=== PATIENT | female | born 1965 | race Caucasian/White ===

== ENCOUNTER 2021-10-25 08:13 | Outpatient (REF) | payer OTHER, SELFPAY ==
[2021-10-25 11:28] LABS: MANUAL DIFF FLAG NO
[2021-10-25 11:35] LABS: Basophils Absolute Auto 0.1 X10*3/uL (0.0-0.2); Basophils Percent Auto 0.9 % (0-2); Eosinophils Absolute Auto 0.7 X10*3/uL (0.0-0.4); Eosinophils Percent Auto 11.3 % (0-4); Hemoglobin 15.4 g/dl (12.0-16.0); Imm Gran Abs Auto 0.01 X10*3/uL (0.00-0.03); Imm Gran Pct Auto 0.2 % (0.0-0.4); Lymphocytes Absolute Auto 2.2 X10*3/uL (1.2-4.9); Lymphocytes Percent Auto 38.5 % (20-40); Mean Corpuscular HGB Conc 32.8 g/dl (31.0-35.0); Mean Corpuscular Hemoglobin 30.7 pg (27.0-33.0); Mean Corpuscular Volume 93.6 fL (80.0-98.0); Monocytes Absolute Auto 0.4 X10*3/uL (0.1-1.2); Monocytes Percent Auto 6.7 % (2-11); Neutrophils Absolute Auto 2.5 x10*3/uL (2.0-8.3); Neutrophils Percent Auto 42.4 % (45-73); Platelet Count 341 X10*3/uL (160-400); Red Blood Count 5.02 X10*6/uL (4.20-5.50); Red Cell Distribution Width 13.5 % (11.0-16.0); White Blood Count 5.8 X10*3/uL (4.8-10.8)
[2021-10-25 11:48] LABS: Alanine Aminotransferase 29 U/L (0-31); Albumin Level 4.4 g/dL (3.5-5.0); Alkaline Phosphatase 109 U/L (39-117); Anion Gap 13 (12-20); Aspartate Amino Transferase 25 U/L (5-31); Bilirubin Total 0.5 mg/dL (0.0-1.0); Blood Urea Nitrogen 17 mg/dL (9-16); Calcium 9.2 mg/dL (8.4-10.2); Carbon Dioxide 29 mmol/L (22-29); Chloride 103 mmol/L (96-108); Cholesterol 280 mg/dL; Estimated Glomerular Filt Rate > 60; Glucose Fasting 89 mg/dL (60-99); HDL Cholesterol 63 mg/dL; LDL Cholesterol Calculated 196 mg/dl; Potassium 4.1 mmol/L (3.3-5.1); Sodium 141 mmol/L (135-145); Total Protein 7.2 g/dL (6.5-8.0); Triglycerides 105 mg/dL
[2021-10-25 12:10] LABS: Vitamin D 25-OH Total 51.4 ng/mL (>30)
[2021-10-25 12:22] LABS: Erythrocyte Sedimentation Rate 5 MM/HR (0-20)
[2021-10-30 21:06] LABS: CRP High Sensitivity 2.3 mg/L
== END 2021-10-25 08:14 | disposition home or self-care (01) ==
LOC: HO.HMGCLDS 08:13
PROVIDERS: PCP Internal Medicine; Visit Provider Internal Medicine
DX: R10.13 Epigastric pain (principal); E78.5 Hyperlipidemia, unspecified; M94.0 Chondrocostal junction syndrome [Tietze]; Z78.0 Asymptomatic menopausal state
CPT/HCPCS: 36415; 80053; 80061; 82306; 85025; 85652; 86141

== ENCOUNTER 2022-06-06 09:07 | Outpatient (REF) | payer OTHER, SELFPAY ==
[2022-06-06 12:46] LABS: Alanine Aminotransferase 25 U/L (0-31); Aspartate Amino Transferase 26 U/L (5-31); Cholesterol 176 mg/dL; HDL Cholesterol 55 mg/dL; LDL Cholesterol Calculated 108 mg/dl; Triglycerides 68 mg/dL
== END 2022-06-06 09:08 | disposition home or self-care (01) ==
LOC: HO.HMGCLDS 09:07
PROVIDERS: PCP Internal Medicine; Visit Provider Internal Medicine
DX: E78.5 Hyperlipidemia, unspecified (principal)
CPT/HCPCS: 36415; 80061; 84450; 84460

== ENCOUNTER 2022-12-17 12:13 | Outpatient (AMB) | payer OTHER, SELFPAY ==
--- NOTE | 2022-12-17 12:51 | MHC.PC.OV ---
Vital Signs 12/17/22 12:52 Height 5 ft Weight 136 lb BMI 26.6 BP 112/70 Blood Pressure Location Rt brachial Position Sitting Pulse 96 Pulse Source Pulse Oximeter Pulse Oximetry (%) 96 Oxygen Delivery Method Room Air Intake Visit Reasons: PHY Intake Note: Pt is here today for her PE and pap smear Allergies No Known Allergies [No Known Allergies*] Allergy (Verified 03/24/23 16:35) Medication List - Last Reconciled 03/24/23 by Catherine Anne MD albuterol sulfate 90 mcg/actuation 2 puffs inhalation Q6H PRN celecoxib 200 mg PO DAILY PRN rosuvastatin 5 mg PO DAILY Tobacco use date assessed: 12/17/22 Dental Screening Dental Screen Date: 12/17/22 Did you have a dental visit in the last 12 months?: No Was dental information given to patient?: Patient has dentist HPI PHY HPI Details 58-year-old lady here today for physical exam. She has hyperlipidemia, currently on rosuvastatin, and has been compliant with her diet, has been having recurrent episodes o pain in her midback, worse with prolonged standing and walking. Denies any accompanying weakness, no urinary or fecal incontinence. She is up-to-date with her screening colonoscopy done [place] [address] Wen showing only presence of diverticulosis, and is due for her cervical cancer screening. Has had COVID vaccinations the past but does not want to get the booster, due for her flu vaccine. She complains of intermittent episode of shortness of breath on moderate exertion, needs a refill on her albuterol inhaler which she uses as needed. Does not smoke cigarettes but vapes. [facility] Medical History (Updated 12/17/22 @ 13:40 by Catherine Anne MD) Lumbago syndrome Mid back pain Esophagitis with gastritis Exertional shortness of breath Surgical History No pertinent past surgical history Family History (Updated 12/17/22 @ 12:54 by Kady Hadley CMA) Father Mental health disorder Other No pertinent family history in first degree relatives Social History Housing: House Patient Tobacco Use Status: Former Tobacco user e-Cigarette/Vaping Use: Currently Using service: No Current occupational status: employed Cognitive needs: No Hearing needs: No Vision needs: Yes Questionnaire PHQ-9 Over the last 2 weeks, how often have you been bothered by any of the following problems? 1. Little interest or pleasure in doing things: several days 2. Feeling down, depressed, or hopeless: not at all 3. Trouble falling or staying asleep, or sleeping too much: several days 4. Feeling tired or having little energy: several days 5. Poor appetite or overeating: not at all 6. Feeling bad about yourself - or that you are a failure or have let yourself or your family down: not at all 7. Trouble concentrating on things, such as reading the newspaper or watching television: not at all 8. Moving or speaking so slowly that other people could have noticed. Or the opposite - being so fidgety or restless that you have been moving around a lot more than usual: not at all 9. Thoughts that you would be better off or of hurting yourself in some way: not at all Total score: 3 Depression Screening Interpretation: Negative Depression Screening Done: Yes 19903 - PHQ-9 Billing: Yes Source: Developed by Drs. Micah Covington, Julia Pastrana, Nilay Kimbrough and colleagues, with an educational miri from [employer]. Thrive Questionnaire Date Thrive assessed: 12/17/22 I am a: Patient What is your living situation today?: I have a steady place to live Within the past 12 months, did the food you bought not last and you didn't have the money to get more?: Never true Within the past 12 months, did you worry whether your food would run out before you got money to buy more?: Never true Do you have trouble paying for medicines?: No Do you have trouble getting transportation to medical appointments?: No Do you have trouble paying your heating and electricity bill?: No Do you have trouble taking care of your child, family member or friend?: No Do you have trouble with day-to-day activities such as bathing, preparing meals, shopping, managing finances, etc.?: No Are you currently unemployed and looking for a job?: No Are you interested in more education?: No AUDIT C Alcohol Use Questionnaire (AUDIT-C) 1. How often do you have a drink containing alcohol?: Monthly or less 2. How many drinks containing alcohol do you have on a typical day when you are drinking?: 1 or 2 3. How often do you have six or more drinks on one occasion?: Never Total Score: 1 YOGESH-7 AMB Questionnaire YOGESH-7 Date YOGESH - 7 assessed: 12/17/22 Feeling nervous, anxious, or on edge: 1 = Several days Not being able to stop or control worryin = Not at all Worrying too much about different things: 0 = Not at all Trouble relaxin = Not at all Being so restless that it is hard to sit still: 0 = Not at all Becoming easily annoyed or irritable: 0 = Not at all Feeling afraid as if something awful might happen: 0 = Not at all Total YOGESH-7 score (0-4 normal; 5-9 mild; 10-14 moderate; 15-21 severe): 1 Source: Developed by Drs. Micah Covington, Julia Pastrana, Nilay Kimbrough and colleagues, with an educational miri from [employer]. YOGESH-7 Assessment Billing YOGESH-7 Assessment Tool: YOGESH-7 Assessment 84116 Review of Systems Const Denies fever(s), Denies headache(s) and Denies weakness Eyes Denies change in vision ENT Denies dizziness, Denies headache(s) and Denies sore throat Card Denies lightheadedness Resp Reports as per HPI, Denies chest congestion and Denies cough GI Denies abdominal pain, Denies change in bowel habits and Denies heartburn Reports no additional complaints Musc Reports no additional complaints, Denies numbness and Denies tingling Skin/Breast Denies lesions and Denies rash Neuro Denies dizziness, Denies headache(s), Denies numbness, Denies radicular pain, Denies Sensory deficit (Neuro), Denies tingling, Denies paresthesias and Denies weakness Psych Reports no additional complaints Endo Reports no additional complaints Leroy/Lymph Reports no additional complaints Aller/Immun Reports no additional complaints Physical exam (Primary Care) Vital Signs: Last Vital Signs Pulse 96 12/17/22 12:52 BP 112/70 12/17/22 12:52 Pulse Ox 96 12/17/22 12:52 Oxygen Delivery Method Room Air 12/17/22 12:52 BMI result Body Mass Index 26.6 Tobacco/Smoking Status: Tobacco use Status Tobacco use date assessed 12/17/22 12/17/22 12:54 Patient Tobacco Use Status Former Tobacco user 12/17/22 12:54 e-Cigarette/Vaping Use Currently Using 12/17/22 12:54 PHQ-9: PHQ-9 Score PHQ-9: Total score 3 03/24/23 16:36 Depression Screening Interpretation: Negative Thrive Assessment: Date of Thrive Assessment Date Thrive assessed 12/17/22 12/17/22 13:13 Const General: comfortable, no acute distress and alert Orientation/consciousness: patient oriented x3 HENMT Ears: external ears normal General nose exam: Normal external nose present and No nasal discharge present Mouth: Normal oral and palatal mucosa present and moist mucous membranes Eyes General: appearance normal, both eyes and all related structures Neck Neck: Yes full ROM, Yes no lymphadenopathy and Yes supple Chest Breast/axilla palpation: normal palpation of the breasts Resp Effort & Inspection: normal respiratory effort and able to speak in complete sentences Auscultation: clear to auscultation bilaterally Cardio Rate: regular rate Rhythm: regular rhythm Heart sounds: S1 normal heart sound present and S2 normal heart sound present GI Palpation (GI): Soft to palpation, nontender and no masses Auscultation: normal bowel sounds General: Yes no CVA tenderness External Female Exam: normal external appearance and normal appearance of the urethra Speculum Exam - Vagina: normal appearance of the vagina, normal palpation and normal vaginal discharge Speculum Exam - Cervix: normal appearance of the cervix, normal palpation and nontender Bimanual exam- vagina & uterus: normal palpation, normal palpation and No Cervical tenderness present Bimanual Exam- Adnexa, other: normal adnexae, no masses, normal and No adnexal tenderness Back/Spine/Pelvis Back: no CVA tenderness and No back tenderness Skin Other: Slightly raised erythematous patch on dorsal aspect of hand bilateral Neuro General: patient oriented x3, gait normal, tone normal, moves all extremities, Normal light touch and pain sensation and no focal motor deficits Cognition (Neuro): normal cognition Sensory Exam: No Sensory deficit (Neuro) Extrem General: Yes full ROM, Yes no joint enlargement, Yes no clubbing, cyanosis or edema and Yes no calf tenderness Psych Appearance: grossly normal and well kempt Mental Status: mental status grossly normal Speech and movement: Normal speech and movement present Affect: normal affect Attitude: cooperative Thought process: Normal thought process present Thought content: Normal thought content present Office Procedures Flu Questionnaire Does the patient have a severe egg allergy?: No Does the patient have severe life threatening allergies?: No Does the patient have a fever or illness today?: No Has the patient ever had Guillain-[place] Syndrome?: No Has the patient ever had any past reaction to a flu shot?: No Immunizations flu vacc [id number] 6mos up(PF) 60 mcg(15 mcgx4)/0.5 mL IM syringe Performing Provider: Catherine Anne MD Performing Location: [facility] Administered by: Kady Hadley CMA on 12/17/22 13:01 Dose Route Admin Location Dispensed Lot Number Expiration Date NDC Belt Picker 0.5 mL IM Left Deltoid 0.5 mL [id number] 09/06/23 [id number] App[employer] VIS Given Date VIS Provided VIS Publication Date 12/17/22 Single Vaccine 20 Eligibility Eligibility Date Funding Source Not [facility] Eligible 12/17/22 Private Assessment and Plan Assessment & Plan (1) Annual visit for general adult medical examination with abnormal findings: Code(s): Z00.01 - Encounter for general adult medical examination with abnormal findings Plan: Will check appropriate labs. Recommended dental visit every 6 months and regular eye exams, at least every 2 years. Take adequate calcium in diet and vitamin-D 3 at 2000 IU per cap once a day, in addition to weight-bearing exercises to help maintain good muscle tone and weight control. Instructed to do self-breast exam, and advised to get yearly mammogram . Flu vaccine given today, declines getting COVID booster, advised to get shingles vaccine. Up-to-date with her screening colonoscopy done in 2018, repeat [place] [address] Wen. (2) Cervical cancer screening: Code(s): Z12.4 - Encounter for screening for malignant neoplasm of cervix Plan: Pap and pelvic exam done today (3) Dyslipidemia: Code(s): E78.5 - Hyperlipidemia, unspecified Plan: fasting lipid profile ordered . Continue with rosuvastatin 5 mg once a day , in addition to adherence to low-cholesterol diet and regular exercise, at least 30 minutes 3 to 4 times a week. Advised patient to make healthy food choices, eat more fruits, vegetables, whole grains, wild caught fish and low-fat dairy. Limit amount of meat and fried or fatty food products, as well as processed foods and fast foods. (4) Mid back pain: Code(s): M54.9 - Dorsalgia, unspecified Plan: X-ray thoracic spine ordered prescription sent for celecoxib 200 mg per tab taken once a day as needed for back pain (5) Exertional shortness of breath: Code(s): R06.02 - Shortness of breath Plan: Refill sent for albuterol inhaler, advised to stop vaping Orders: Orders Alanine Aminotransferase 12/17/22 E78.5 - Hyperlipidemia, unspecified, Z00.01 - Encounter for general adult medical examination with abnormal findings Influenza [id number] Immunization 12/17/22 Z23 - Encounter for immunization Pap Smear 12/17/22 Z12.4 - Encounter for screening for malignant neoplasm of cervix Lipid Panel 12/17/22 E78.5 - Hyperlipidemia, unspecified, Z00.01 - Encounter for general adult medical examination with abnormal findings Aspartate Amino Transferase 12/17/22 E78.5 - Hyperlipidemia, unspecified, Z00.01 - Encounter for general adult medical examination with abnormal findings Glucose Fasting 12/17/22 E78.5 - Hyperlipidemia, unspecified, Z00.01 - Encounter for general adult medical examination with abnormal findings XR thoracic spine 3V 12/17/22 M54.9 - Dorsalgia, unspecified, M54.50 - Low back pain, unspecified Medications: New celecoxib 200 mg PO DAILY PRN 30 caps 1RF back pain Changed From albuterol sulfate 90 mcg/actuation 2 puffs inhalation Q6H PRN 8.5 grams 0RF shortness of breath or wheezing To albuterol sulfate 90 mcg/actuation 2 puffs inhalation Q6H PRN 8.5 grams 0RF shortness of breath or wheezing Coding Level of Care Code Est Pt Prev Care 40-64y(96223) Diagnoses Annual visit for general adult medical examination with abnormal findings Z00.01 Cervical cancer screening Z12.4 Dyslipidemia E78.5 Mid back pain M54.9 Exertional shortness of breath R06.02 Additional Codes YOGESH-7 Assessment Billing - YOGESH-7 Assessment Tool: YOGESH-7 Assessment 76672 ([id number])
[2022-12-17 12:52] VITALS: BP 112/70; PULSE 96; O2SAT 96; BMI 26.6
== END 2022-12-17 13:46 | disposition home or self-care (01) ==
PROVIDERS: Visit Provider Internal Medicine
DX: Z00.01 Encounter for general adult medical examination with abnormal findings (principal); M54.9 Dorsalgia, unspecified; R06.02 Shortness of breath; E78.5 Hyperlipidemia, unspecified
CPT/HCPCS: 90471; 90686; 99213; 99396

== ENCOUNTER 2022-12-17 13:26 | Outpatient (REF) | payer OTHER, SELFPAY | END 2022-12-17 13:27 | disposition home or self-care (01) | LOC: HO.LAB 13:26 | PROVIDERS: Visit Provider Internal Medicine | DX: Z12.4 Encounter for screening for malignant neoplasm of cervix (principal) | CPT/HCPCS: 88142 ==

== ENCOUNTER 2022-12-17 13:50 | Outpatient (REF) | payer OTHER, SELFPAY ==
--- NOTE | ~2022-12-17 | XR_ITS ---
EXAMINATION: XR LUMBAR SPINE, 4 VIEWS MINIMUM XR THORACIC SPINE, 3 VIEWS CLINICAL INFORMATION: 57-year-old with dorsalgia. COMPARISON: None available. LUMBAR TECHNIQUE: AP, lateral, bilateral oblique, coned-down lateral views. FINDINGS: Alignment: 3.5 mm of 5 grade 1 degenerative spondylolisthesis at L4-L5 noted, with no evidence for spondylolysis. 2 mm of retrolisthesis also noted at L3-L4. Trace mid lumbar levocurvature noted at L3-L4. Vertebral Heights: Normal. No compression fractures. Disc Space Heights: Hufvtnwf-at-nffzeg intervertebral disc space height loss at L5-S1, mild disc height loss at L4-L5 and azem-yv-cibsrqac disc space height loss at L3-L4 and L2-L3. Vertebral Endplates: Minor degrees of multilevel endplate spurring. Otherwise, endplates appear grossly intact without destructive changes. Pedicles/Spinous Processes: Grossly intact. Facet Joints: Bilateral facet arthropathy at the levels between L3-L4 and L5-S1 inclusive. Soft Tissues: Probable phleboliths in the pelvis bilaterally. Visualized SI Joints: Normal. Limited assessment. XR/XR lumbar spine 4V min IMPRESSION: 1. Grade 1 degenerative spondylolisthesis at L4-L5 and 2 mm of retrolisthesis at L3-L4. 2. Qlmsyqwc-pk-aummkp intervertebral disc space height loss at L5-S1 and avms-nc-usyhmagf disc space height loss at L2-L3 and L3-L4. Minor degrees of multilevel endplate spurring. 3. No compression fractures. 4. Multilevel bilateral facet arthrosis. THORACIC TECHNIQUE: AP, lateral and swimmer's lateral views were obtained. FINDINGS: The thoracic spine appears in anatomic alignment. At T3, there is mild concavity along the superior endplate on the swimmer's lateral view. Uncertain whether this is artifactual or related to a mild superior endplate compression deformity. Otherwise, vertebral body heights are well maintained. The intervertebral disc space heights appear wzmqwi-vw-rffvtlasuc narrowed in the mid to upper thoracic spine with minor anterior marginal endplate spurring in the midthoracic spine. Pedicles and spinous processes appear grossly intact within the limitations of the study. Visualized extraspinal soft tissue structures are grossly unremarkable with a normal appearance to the paraspinal lines. IMPRESSION: 1. Possible mild superior endplate compression deformity of T3 versus artifact which can be further assessed with either MRI or CT if clinically warranted. 2. Minor multilevel degenerative changes, as discussed above.
--- NOTE | ~2022-12-17 | XR_ITS ---
EXAMINATION: XR LUMBAR SPINE, 4 VIEWS MINIMUM XR THORACIC SPINE, 3 VIEWS CLINICAL INFORMATION: 57-year-old with dorsalgia. COMPARISON: None available. LUMBAR TECHNIQUE: AP, lateral, bilateral oblique, coned-down lateral views. FINDINGS: Alignment: 3.5 mm of 5 grade 1 degenerative spondylolisthesis at L4-L5 noted, with no evidence for spondylolysis. 2 mm of retrolisthesis also noted at L3-L4. Trace mid lumbar levocurvature noted at L3-L4. Vertebral Heights: Normal. No compression fractures. Disc Space Heights: Srccsewt-re-hetosl intervertebral disc space height loss at L5-S1, mild disc height loss at L4-L5 and gbwc-zk-fiefrslf disc space height loss at L3-L4 and L2-L3. Vertebral Endplates: Minor degrees of multilevel endplate spurring. Otherwise, endplates appear grossly intact without destructive changes. Pedicles/Spinous Processes: Grossly intact. Facet Joints: Bilateral facet arthropathy at the levels between L3-L4 and L5-S1 inclusive. Soft Tissues: Probable phleboliths in the pelvis bilaterally. Visualized SI Joints: Normal. Limited assessment. XR/XR thoracic spine 3V IMPRESSION: 1. Grade 1 degenerative spondylolisthesis at L4-L5 and 2 mm of retrolisthesis at L3-L4. 2. Jkfgxnqw-xf-mlaafl intervertebral disc space height loss at L5-S1 and fukl-pw-flyxvsxs disc space height loss at L2-L3 and L3-L4. Minor degrees of multilevel endplate spurring. 3. No compression fractures. 4. Multilevel bilateral facet arthrosis. THORACIC TECHNIQUE: AP, lateral and swimmer's lateral views were obtained. FINDINGS: The thoracic spine appears in anatomic alignment. At T3, there is mild concavity along the superior endplate on the swimmer's lateral view. Uncertain whether this is artifactual or related to a mild superior endplate compression deformity. Otherwise, vertebral body heights are well maintained. The intervertebral disc space heights appear lkjjyx-ql-pndntfbmcd narrowed in the mid to upper thoracic spine with minor anterior marginal endplate spurring in the midthoracic spine. Pedicles and spinous processes appear grossly intact within the limitations of the study. Visualized extraspinal soft tissue structures are grossly unremarkable with a normal appearance to the paraspinal lines. IMPRESSION: 1. Possible mild superior endplate compression deformity of T3 versus artifact which can be further assessed with either MRI or CT if clinically warranted. 2. Minor multilevel degenerative changes, as discussed above.
== END 2022-12-17 13:51 | disposition home or self-care (01) ==
LOC: HO.HMGCX 13:50
PROVIDERS: PCP Internal Medicine; Visit Provider Internal Medicine
DX: M54.50 Low back pain, unspecified (principal)
CPT/HCPCS: 72072; 72110

== ENCOUNTER 2023-02-23 07:25 | Outpatient (REF) | payer OTHER, SELFPAY ==
--- NOTE | ~2023-02-23 | MR_ITS ---
EXAMINATION: MR THORACIC SPINE WITHOUT CONTRAST CLINICAL INFORMATION: Major back pain. Bending left lower leg. COMPARISON: Plain films of the thoracic and lumbar spine 12/17/2022. MRI scan of the lumbar spine 06/30/2019. TECHNIQUE: MRI of the thoracic spine was obtained using routine sequences without contrast. FINDINGS: VERTEBRAL BODIES AND PARASPINAL STRUCTURES: There is anatomic alignment of the vertebral bodies. There is mild loss of intervertebral disc height at multiple levels. The study redemonstrates a cavity along the superior endplate of T3; this is likely chronic as this vertebra has isointense signal to adjacent osseous structures. Vertebral body heights are maintained at other levels. Overall, marrow signal is homogenous. The paravertebral and visualized posterior thoracic and superior retroperitoneal structures are unremarkable. The conus is at the level of L1-L2. The lower thoracic spinal cord appears normal. The cauda equina nerve roots and filum terminale appear normal. SPINAL LEVELS: C7-T1 and T1-T2: The facet joints appear normal bilaterally. Disc contours are normal. There is no central stenosis or foraminal narrowing. T2-T3: The facet joints appear normal. There is a shallow posterior disc protrusion with mild effacement of CSF ventral to the spinal cord but there is no cord compression or central stenosis. The neural foramina are patent bilaterally. T3-T4 through T7-T8: The facet joints appear normal bilaterally. Disc contours are normal. There is no central stenosis or foraminal narrowing. T8-T9: There is mild bilateral facet arthropathy. There is a small right-sided posterior disc protrusion with minimal distortion of the ventral thecal sac and there is no central stenosis. The neural foramina are patent bilaterally. T9-T10 through T12-L1: There is mild bilateral facet arthropathy at these levels. Posterior disc contours are normal. There is no central stenosis or foraminal narrowing. MR/MR thoracic spine wo con IMPRESSION: 1. There are no acute fractures or subluxations. The study redemonstrates a cavity along the superior endplate of T3 which is likely chronic. 2. There are mild spondylitic and facet arthropathic changes at multiple levels as described above. There is no central stenosis or foraminal narrowing.
== END 2023-02-23 07:26 | disposition home or self-care (01) ==
LOC: HO.MRI 07:25
PROVIDERS: PCP Internal Medicine; Visit Provider Internal Medicine
DX: M54.9 Dorsalgia, unspecified (principal); M54.50 Low back pain, unspecified; M43.9 Deforming dorsopathy, unspecified
CPT/HCPCS: 72146

== ENCOUNTER 2024-05-04 10:37 | Outpatient (REF) | payer OTHER, SELFPAY ==
--- NOTE | ~2024-05-04 | XR_ITS ---
EXAMINATION: XR HIP, LEFT CLINICAL INFORMATION: M25.552 - Pain in left hip COMPARISON: 08/23/2017. TECHNIQUE: Two views of the left hip. FINDINGS: No fracture. Alignment is anatomic. Hip joint space is maintained. Soft tissues are unremarkable. XR/XR hip LT min 2V IMPRESSION: Normal left hip. Electronically signed by: Corey Alfredo MD 05/04/2024 02:50 PM EST
== END 2024-05-04 10:38 | disposition home or self-care (01) ==
LOC: HO.HMGCX 10:37
PROVIDERS: PCP Internal Medicine; Visit Provider Internal Medicine
DX: M25.552 Pain in left hip (principal); R06.02 Shortness of breath
CPT/HCPCS: 73502; 96127

== ENCOUNTER 2024-05-04 10:37 | Outpatient (AMB) | payer OTHER, SELFPAY ==
--- NOTE | 2024-05-04 10:44 | MHC.PC.OV ---
Vital Signs 05/04/24 10:45 Height 5 ft Weight 146 lb BMI 28.5 BP 112/80 Blood Pressure Location Lt brachial Position Sitting Respiration 16 Pulse 79 Pulse Source Pulse Oximeter Temp 97.8 F Temp Source Oral Pulse Oximetry (%) 96 Oxygen Delivery Method Room Air Intake Visit Reasons: pain hip/knee/short of breath Intake Note: Pt is here today c/o Lt hip pain and Lt knee no injury noted/SOB/cough Allergies No Known Allergies [No Known Allergies*] Allergy (Verified 05/04/24 10:52) Medication List - Last Reconciled 05/04/24 by Catherine Anne MD albuterol sulfate 90 mcg/actuation 2 puffs PO Q6H PRN celecoxib 200 mg PO DAILY PRN rosuvastatin 5 mg PO DAILY Tobacco use date assessed: 05/04/24 Dental Screening Dental Screen Date: 05/04/24 Did you have a dental visit in the last 12 months?: No Did you have a dental problem in the last 6 months where you did not have access to dental care?: No Was dental information given to patient?: No HPI pain hip/knee/short of breath HPI Details 59-year-old lady here today complaining of progressive pain in her left hip joint, worse now with walking for extended periods of time. Has been taking celecoxib 200 mg once a day which has not really been helping much. Has tried NSAIDs in the past and Tylenol arthritis. No history of trauma . She also has been complaining of shortness of breath worse on exertion. Has been having a dry cough on and off. Does not smoke but continues to vape. Has an albuterol inhaler which she uses almost on a daily basis due to symptoms mentioned. [facility] Medical History (Updated 05/04/24 @ 11:05 by Catherine Anne MD) Left hip pain Lumbago syndrome Mid back pain Esophagitis with gastritis Exertional shortness of breath Surgical History No pertinent past surgical history Family History Father Mental health disorder Other No pertinent family history in first degree relatives Social History Housing: House Patient Tobacco Use Status: Former Tobacco user e-Cigarette/Vaping Use: Currently Using service: No Current occupational status: employed Cognitive needs: No Hearing needs: No Vision needs: Yes Questionnaire PHQ-9 Over the last 2 weeks, how often have you been bothered by any of the following problems? 1. Little interest or pleasure in doing things: not at all 2. Feeling down, depressed, or hopeless: not at all 3. Trouble falling or staying asleep, or sleeping too much: not at all 4. Feeling tired or having little energy: more than half the days 5. Poor appetite or overeating: not at all 6. Feeling bad about yourself - or that you are a failure or have let yourself or your family down: not at all 7. Trouble concentrating on things, such as reading the newspaper or watching television: not at all 8. Moving or speaking so slowly that other people could have noticed. Or the opposite - being so fidgety or restless that you have been moving around a lot more than usual: not at all 9. Thoughts that you would be better off or of hurting yourself in some way: not at all Total score: 2 Depression Screening Interpretation: Negative Depression Screening Done: Yes 25946 - PHQ-9 Billing: Yes Source: Developed by Drs. Micah Covington, Julia Pastrana, Nilay Kimbrough and colleagues, with an educational miri from [employer]. Thrive Questionnaire Date Thrive assessed: 05/04/24 I am a: Patient What is your living situation today?: I have a steady place to live Within the past 12 months, did the food you bought not last and you didn't have the money to get more?: Never true Within the past 12 months, did you worry whether your food would run out before you got money to buy more?: Never true Do you have trouble paying for medicines?: No Do you have trouble getting transportation to medical appointments?: No Do you have trouble paying your heating and electricity bill?: No Do you have trouble taking care of your child, family member or friend?: No Do you have trouble with day-to-day activities such as bathing, preparing meals, shopping, managing finances, etc.?: No Are you currently unemployed and looking for a job?: No Are you interested in more education?: No Please select the resources that you would like help with: None Currently or been in a relationship where the following occur: No concerns reported THRIVE Score: 0 AUDIT C Alcohol Use Questionnaire (AUDIT-C) 1. How often do you have a drink containing alcohol?: Monthly or less 2. How many drinks containing alcohol do you have on a typical day when you are drinking?: 1 or 2 3. How often do you have six or more drinks on one occasion?: Never Total Score: 1 YOGESH-7 AMB Questionnaire YOGESH-7 Date YOGESH - 7 assessed: 05/04/24 Feeling nervous, anxious, or on edge: 0 = Not at all Not being able to stop or control worryin = Not at all Worrying too much about different things: 0 = Not at all Trouble relaxin = Not at all Being so restless that it is hard to sit still: 0 = Not at all Becoming easily annoyed or irritable: 0 = Not at all Feeling afraid as if something awful might happen: 0 = Not at all Total YOGESH-7 score (0-4 normal; 5-9 mild; 10-14 moderate; 15-21 severe): 0 Source: Developed by Drs. Micah Covington, Julia Pastrana, Nilay Kimbrough and colleagues, with an educational miri from [employer]. YOGESH-7 Assessment Billing YOGESH-7 Assessment Tool: YOGESH-7 Assessment 15104 Review of Systems Const Denies fever(s), Denies headache(s) and Denies weakness Eyes Denies change in vision ENT Denies dizziness, Denies headache(s) and Denies sore throat Card Denies lightheadedness Resp Reports as per HPI, Denies chest congestion and Denies cough GI Denies abdominal pain, Denies change in bowel habits and Denies heartburn Reports no additional complaints Musc Reports no additional complaints, Denies numbness and Denies tingling Skin/Breast Denies lesions and Denies rash Neuro Denies dizziness, Denies headache(s), Denies numbness, Denies radicular pain, Denies Sensory deficit (Neuro), Denies tingling, Denies paresthesias and Denies weakness Psych Reports no additional complaints Endo Reports no additional complaints Leroy/Lymph Reports no additional complaints Aller/Immun Reports no additional complaints Physical exam (Primary Care) Vital Signs: Last Vital Signs Temp 97.8 F 05/04/24 10:45 Pulse 79 05/04/24 10:45 Resp 16 05/04/24 10:45 BP 112/80 05/04/24 10:45 Pulse Ox 96 05/04/24 10:45 Oxygen Delivery Method Room Air 05/04/24 10:45 BMI result Body Mass Index 28.5 Tobacco/Smoking Status: Tobacco use Status Tobacco use date assessed 05/04/24 05/04/24 10:50 Patient Tobacco Use Status Former Tobacco user 05/04/24 10:50 e-Cigarette/Vaping Use Currently Using 05/04/24 10:50 PHQ-9: PHQ-9 Score PHQ-9: Total score 2 05/04/24 10:52 Depression Screening Interpretation: Negative Thrive Assessment: Date of Thrive Assessment Date Thrive assessed 05/04/24 05/04/24 10:50 Currently or been in a relationship where the following occur: No concerns reported Const General: comfortable, no acute distress and alert Orientation/consciousness: patient oriented x3 HENMT Ears: external ears normal General nose exam: Normal external nose present and No nasal discharge present Mouth: Normal oral and palatal mucosa present and moist mucous membranes Eyes General: appearance normal, both eyes and all related structures Neck Neck: Yes full ROM, Yes no lymphadenopathy and Yes supple Resp Effort & Inspection: normal respiratory effort and able to speak in complete sentences Auscultation: clear to auscultation bilaterally Cardio Rate: regular rate Rhythm: regular rhythm Heart sounds: S1 normal heart sound present and S2 normal heart sound present GI Palpation (GI): Soft to palpation, nontender and no masses Auscultation: normal bowel sounds Back/Spine/Pelvis Back: No back tenderness Neuro General: patient oriented x3, gait normal, tone normal, moves all extremities, Normal light touch and pain sensation and no focal motor deficits Cognition (Neuro): normal cognition Sensory Exam: No Sensory deficit (Neuro) Extrem Other: Slight tenderness on palpation over lateral aspect of left hip joint General: Yes full ROM, Yes no joint enlargement, Yes no clubbing, cyanosis or edema and Yes no calf tenderness Psych Appearance: grossly normal and well kempt Mental Status: mental status grossly normal Speech and movement: Normal speech and movement present Affect: normal affect Attitude: cooperative Thought process: Normal thought process present Thought content: Normal thought content present Coding Level of Care Code Est Pt Level 4 (61288) Diagnoses Left hip pain M25.552 Exertional shortness of breath R06.02 Additional Codes YOGESH-7 Assessment Billing - YOGESH-7 Assessment Tool: YOGESH-7 Assessment 09902 ([id number]) PHQ-9 - 62169 - PHQ-9 Billing: Yes ([id number]) Assessment & Plan Assessment & Plan (1) Left hip pain: Code(s): M25.552 - Pain in left hip Category: Medical Plan: X-ray of left hip ordered, referred to orthopedics for further evaluation and management. (2) Exertional shortness of breath: Code(s): R06.02 - Shortness of breath Category: Medical Plan: Likely asthma. Start her on Symbicort 160-4.5 mcg per actuation, to start with a 1 inhalation twice a day, rinse mouth after use. May increase dose to 2 inhalations twice a day , has albuterol inhaler to take as needed for episodes of acute bronchospasm wheezing. Strongly advised to stop vaping. Orders: Orders XR hip LT min 2V 05/04/24 M25.552 - Pain in left hip Referrals Orthopedics Referral M25.552 - Pain in left hip Medications: New budesonide-formoterol 160-4.5 mcg/actuation (Symbicort) 2 puffs inhalation Q12H 10.2 grams 1RF inhalational spacing device (BreatheRite MDI Spacer) As directed 1 [facility] [place]
[2024-05-04 10:45] VITALS: BP 112/80; PULSE 79; RESP 16; TEMP 36.6; O2SAT 96; BMI 28.5
== END 2024-05-04 11:13 | disposition home or self-care (01) ==
PROVIDERS: PCP Internal Medicine; Visit Provider Internal Medicine
DX: M25.552 Pain in left hip (principal); R06.02 Shortness of breath

== ENCOUNTER → 2024-05-04 11:19 | Outpatient (BNV) | payer OTHER, SELFPAY | PROVIDERS: PCP Internal Medicine; Visit Provider Radiology Diagnostic Radiology | DX: M25.552 Pain in left hip (principal) | CPT/HCPCS: 73502 ==

== ENCOUNTER 2024-05-24 08:58 | Outpatient (REF) | payer OTHER, SELFPAY ==
--- NOTE | 2024-05-24 09:03 | PFT_ITS ---
Flows: FEV1: 66 % of predicted at 1.46 L FVC: 92 % of predicted at 2.56 L FEV1/FVC: 57 % Bronchodilator response: Present Volumes: Total lung capacity: 102 % of predicted at 4.53 L Residual volume: 146 % of predicted at 2.14 L Slow vital capacity: 79 % of predicted at 2.38 L Expiratory reserve volume: 113 % of predicted at 0.81 L Diffusion capacity: Mildly decreased Impression: Moderate obstructive ventilatory defect with positive bronchodilator response. Increased residual volume suggests air trapping. Decreased diffusion capacity suggests emphysema. MTDD
[2024-05-24 09:53] VITALS: PULSE 69
== END 2024-05-24 08:59 | disposition home or self-care (01) ==
LOC: HO.RESP 08:58
PROVIDERS: PCP Internal Medicine; Visit Provider Internal Medicine
DX: R06.02 Shortness of breath (principal)
CPT/HCPCS: 94010; 94640; 94727; 94729

== ENCOUNTER → 2024-05-24 09:03 | Outpatient (BNV) | payer OTHER, SELFPAY | PROVIDERS: PCP Internal Medicine; Visit Provider Internal Medicine Pulmonary Disease | DX: R06.02 Shortness of breath (principal) | CPT/HCPCS: 94060; 94727; 94729 ==

== ENCOUNTER 2024-06-09 11:21 | Outpatient (AMB) | payer OTHER, SELFPAY ==
[2024-06-09 11:38] VITALS: BP 112/68; PULSE 75; RESP 15; TEMP 36.7; O2SAT 98; BMI 28.3
--- NOTE | 2024-06-09 11:38 | A.OFFPC_ITS ---
Vital Signs 06/09/24 11:38 Height 5 ft Weight 145 lb BMI 28.3 BP 112/68 Blood Pressure Location Rt brachial Position Sitting Respiration 15 Pulse 75 Pulse Source Pulse Oximeter Temp 98.1 F Temp Source Oral Pulse Oximetry (%) 98 Oxygen Delivery Method Room Air Intake Visit Reasons: 4wks f/u asthma Intake Note: Pt is here today 4wks f/u asthma Allergies No Known Allergies [No Known Allergies*] Allergy (Verified 06/09/24 12:10) Medication List - Last Reconciled 06/09/24 by Catherine Anne MD albuterol sulfate 90 mcg/actuation 2 puffs PO Q6H PRN budesonide-formoterol 160-4.5 mcg/actuation (Symbicort) 2 puffs inhalation Q12H celecoxib 200 mg PO DAILY PRN inhalational spacing device (BreatheRite MDI Spacer) As directed rosuvastatin 5 mg PO DAILY Tobacco use date assessed: 06/09/24 Dental Screening Dental Screen Date: 06/09/24 Did you have a dental visit in the last 12 months?: No Did you have a dental problem in the last 6 months where you did not have access to dental care?: No Was dental information given to patient?: No HPI 4wks f/u asthma HPI Details 59-year-old lady here today for follow-u p on results of her pulmonary function test. It showed presence of moderate obstructive ventilatory defect with bronchodilator response. She was started on Symbicort on last visit and has been using 2 inhalations every 12 hours, which has helped boost will leave her cough and wheezing. Rarely needed to take her albuterol inhaler. She is a former smoker used to smoke a pack a day for 30 years but quit 10 years ago, now vapes nicotine Date of Service: 05/24/24 Procedure(s): PFT pulmonary function test Accession Number(s): [id number] Flows: FEV1: 66 % of predicted at 1.46 L FVC: 92 % of predicted at 2.56 L FEV1/FVC: 57 % Bronchodilator response: Present Volumes: Total lung capacity: 102 % of predicted at 4.53 L Residual volume: 146 % of predicted at 2.14 L Slow vital capacity: 79 % of predicted at 2.38 L Expiratory reserve volume: 113 % of predicted at 0.81 L Diffusion capacity: Mildly decreased Impression: Moderate obstructive ventilatory defect with positive bronchodilator response. Increased residual volume suggests air trapping. Decreased diffusion capacity suggests emphysema. [facility] Medical History Emphysema of lung Left hip pain Lumbago syndrome Mid back pain Esophagitis with gastritis Exertional shortness of breath Surgical History No pertinent past surgical history Family History Father Mental health disorder Other No pertinent family history in first degree relatives Social History Housing: House Patient Tobacco Use Status: Former Tobacco user Tobacco use type: Cigarette Cigarette Packs Per Day: 1 Years Smoked: 30 years Non Cigarette Tobacco use how long: Quit smoke 10 years e-Cigarette/Vaping Use: Currently Using service: No Current occupational status: employed Cognitive needs: No Hearing needs: No Vision needs: Yes Questionnaire PHQ-9 Over the last 2 weeks, how often have you been bothered by any of the following problems? Depression Screening Interpretation: Negative Depression Screening Done: Yes Source: Developed by Drs. Micah Covington, Julia Pastrana, Nilay Kimbrough and colleagues, with an educational miri from [employer]. Thrive Questionnaire Date Thrive assessed: 05/04/24 I am a: Patient What is your living situation today?: I have a steady place to live Within the past 12 months, did the food you bought not last and you didn't have the money to get more?: Never true Within the past 12 months, did you worry whether your food would run out before you got money to buy more?: Never true Do you have trouble paying for medicines?: No Do you have trouble getting transportation to medical appointments?: No Do you have trouble paying your heating and electricity bill?: No Do you have trouble taking care of your child, family member or friend?: No Do you have trouble with day-to-day activities such as bathing, preparing meals, shopping, managing finances, etc.?: No Are you currently unemployed and looking for a job?: No Are you interested in more education?: No Please select the resources that you would like help with: None Currently or been in a relationship where the following occur: No concerns reported THRIVE Score: 0 YOGESH-7 AMB Questionnaire YOGESH-7 Date YOGESH - 7 assessed: 05/04/24 Source: Developed by Drs. Micah Covington, Julia Pastrana, Nilay Kimbrough and colleagues, with an educational miri from [employer]. Review of Systems Const Denies headache(s) and Denies weakness ENT Denies dizziness, Denies headache(s) and Denies sore throat Card Denies lightheadedness, Denies dyspnea and Denies dyspnea on exertion Resp Denies chest congestion, Denies cough, Denies dyspnea, Denies dyspnea on exertion and Denies wheezing GI Denies abdominal pain, Denies change in bowel habits and Denies heartburn Neuro Denies dizziness, Denies headache(s), Denies radicular pain, Denies Sensory deficit (Neuro), Denies paresthesias and Denies weakness Aller/Immun Reports no additional complaints and Denies wheezing Physical exam (Primary Care) Vital Signs: Last Vital Signs Temp 98.1 F 06/09/24 11:38 Pulse 75 06/09/24 11:38 Resp 15 06/09/24 11:38 BP 112/68 06/09/24 11:38 Pulse Ox 98 06/09/24 11:38 Oxygen Delivery Method Room Air 06/09/24 11:38 BMI result Body Mass Index 28.3 Tobacco/Smoking Status: Tobacco use Status Tobacco use date assessed 06/09/24 06/09/24 11:40 Patient Tobacco Use Status Former Tobacco user 06/09/24 12:06 Tobacco use type Cigarette 06/09/24 12:06 e-Cigarette/Vaping Use Currently Using 06/09/24 12:06 Depression Screening Interpretation: Negative Thrive Assessment: Date of Thrive Assessment Date Thrive assessed 05/04/24 06/09/24 11:40 Currently or been in a relationship where the following occur: No concerns reported Const General: no acute distress and alert Orientation/consciousness: patient oriented x3 HENMT Ears: external ears normal General nose exam: Normal external nose present Mouth: Normal oral and palatal mucosa present and moist mucous membranes Eyes General: appearance normal, both eyes and all related structures Neck Neck: Yes full ROM, Yes no lymphadenopathy and Yes supple Resp Effort & Inspection: normal respiratory effort and able to speak in complete sentences Auscultation: clear to auscultation bilaterally Cardio Rate: regular rate Rhythm: regular rhythm Heart sounds: S1 normal heart sound present and S2 normal heart sound present GI Palpation (GI): Soft to palpation, nontender and no masses Auscultation: normal bowel sounds Neuro General: patient oriented x3, gait normal, tone normal, moves all extremities, Normal light touch and pain sensation and no focal motor deficits Cognition (Neuro): normal cognition Sensory Exam: No Sensory deficit (Neuro) Immunizations pneumoc 20-sharee conj-dip cr(PF) 0.5 mL IM syringe Performing Provider: Catherine Anne MD Performing Location: [facility] Administered by: Tarsha Devine RN on 06/09/24 12:23 Dose Route Admin Location Dispensed Lot Number Expiration Date NDC [employer] 0.5 mL IM Right Deltoid 0.5 mL [id number] 04/10/25 4212-2720-24 [employer] VIS Given Date VIS Provided VIS Publication Date 06/09/24 Single Vaccine 22 Eligibility Eligibility Date Funding Source Not [facility] Eligible 06/09/24 Private Coding Level of Care Code Est Pt Level 4 (96208) Complex EM visit Add On G2211 Diagnoses Emphysema of lung J43.9 Assessment & Plan Assessment & Plan (1) Emphysema of lung: Comment: PFT 05/24/24 Moderate obstructive ventilatory defect with positive bronchodilator response. Increased residual volume suggests air trapping. Decreased diffusion capacity suggests emphysema. Code(s): J43.9 - Emphysema, unspecified Category: Medical Plan: Continue with budesonide-formoterol inhaler, may decrease dose now to just 1 inhalation at night if symptoms have resolved, take albuterol inhaler as needed for episodes of bronchospasm and wheezing, strongly advised to stop vaping. Prevnar 20 given today, reminded to get yearly flu shots Orders: Orders Lipid Panel 09/03/24 E78.5 - Hyperlipidemia, unspecified, J43.9 - Emphysema, unspecified, M25.552 - Pain in left hip, Z13.1 - Encounter for screening for diabetes mellitus, Z78.0 - Asymptomatic menopausal state Aspartate Amino Transferase 09/03/24 E78.5 - Hyperlipidemia, unspecified, J43.9 - Emphysema, unspecified, M25.552 - Pain in left hip, Z13.1 - Encounter for screening for diabetes mellitus, Z78.0 - Asymptomatic menopausal state Pneumococcal 20 Immunization Today J43.9 - Emphysema, unspecified Basic Metabolic Panel Fasting 09/03/24 E78.5 - Hyperlipidemia, unspecified, J43.9 - Emphysema, unspecified, M25.552 - Pain in left hip, Z13.1 - Encounter for screening for diabetes mellitus, Z78.0 - Asymptomatic menopausal state Alanine Aminotransferase 09/03/24 E78.5 - Hyperlipidemia, unspecified, J43.9 - Emphysema, unspecified, M25.552 - Pain in left hip, Z13.1 - Encounter for screening for diabetes mellitus, Z78.0 - Asymptomatic menopausal state Vitamin D 25-OH Total 09/03/24 E78.5 - Hyperlipidemia, unspecified, J43.9 - Emphysema, unspecified, M25.552 - Pain in left hip, Z13.1 - Encounter for screening for diabetes mellitus, Z78.0 - Asymptomatic menopausal state Creatine Kinase Total 09/03/24 E78.5 - Hyperlipidemia, unspecified, J43.9 - Emphysema, unspecified, M25.552 - Pain in left hip, Z13.1 - Encounter for s creening for diabetes mellitus, Z78.0 - Asymptomatic menopausal state Complete Blood Count Auto Diff 09/03/24 K20.90 - Esophagitis, unspecified without bleeding, K29.70 - Gastritis, unspecified, without bleeding Medications: Refilled budesonide-formoterol 160-4.5 mcg/actuation (Symbicort) 2 puffs inhalation Q12H 10.2 grams 5RF J43.9 - Emphysema, unspecified
== END 2024-06-09 12:19 | disposition home or self-care (01) ==
LOC: HO.HMCC 11:21
PROVIDERS: PCP Internal Medicine; Visit Provider Internal Medicine
DX: J43.9 Emphysema, unspecified (principal)

== ENCOUNTER → 2024-06-09 11:21 | Outpatient (BNVA) | payer OTHER, SELFPAY | PROVIDERS: PCP Internal Medicine; Visit Provider Internal Medicine | DX: J43.9 Emphysema, unspecified (principal); Z23 Encounter for immunization | CPT/HCPCS: 90471; 90677 ==

== ENCOUNTER 2024-07-12 08:59 | Outpatient (AMB) | payer OTHER, SELFPAY ==
--- NOTE | 2024-07-12 09:12 | MHC.OFFVIS ---
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 patient reports off and on pain for many years ago. Hx of Bursitis diagnosis. Hx of injection with no relief. Patients pain is on the lateral aspect of the hip and moves to her groin. Her pain is worse when she is laying down and after work. Patient has tried hyaluronic acid capsules and it is giving her mild relief. 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 Talbert this is a 59-year-old female who presents to the office today for evaluation of left lateral hip pain. She reports that she has had pain that waxes and wanes over the past few years. She reports that the pain has improved since making the appointment. The pain still does persist just not as severe. The pain is located on the lateral aspect of the hip and is difficult when she is lying down on her left side. Additionally, the patient points to the area of the IT band from the hip distally to the knee that also has some soreness. Lastly, the patient also reports a history of left lower extremity burning on the anterior lateral aspect of the tibia and in the feet. [facility] Medical History Emphysema of lung Left hip pain Lumbago syndrome Mid back pain Esophagitis with gastritis Exertional shortness of breath Surgical History No pertinent past surgical history Family History Father Mental health disorder Other No pertinent family history in first degree relatives Social History (Updated 07/12/24 @ 09:24 by Anatoliy Broussard) Housing: House Alcohol intake: current Alcohol intake frequency: holidays/special occasions only Patient Tobacco Use Status: Former Tobacco user Tobacco use type: Cigarette Cigarette Packs Per Day: 1 Years Smoked: 30 years e-Cigarette/Vaping Use: Currently Using service: No Current occupational status: employed 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 Tenderness to palpation over the greater trochanteric bursa. Able to perform straight leg raise. NVI. Office Procedures AMB Joint Injection/Aspiration Joint Injection/Aspiration Primary Site: other (Left hip greater troch bursa) Prep: site was prepped using aseptic technique, ethochloride spray was applied and injection warnings given Injected: 80 mg of, DepoMedrol, with 8 mL of (2% plain lidocaine) and other (Greater troch bursa) Approach Used: other (Lateral) Procedure: The patient tolerated the procedure well, but had some pain with the injection and there was some relief with the local anesthesia Coding 12415 - Glenohumeral/Tronchanteric Bursa/Intraarticular Procedure code (CPT) selection complete Assessment & Plan Assessment & Plan (1) Greater trochanteric bursitis of left hip: Code(s): M70.62 - Trochanteric bursitis, left hip Category: Medical Plan Ms. Talbert this is a 59-year-old female who presents to the office today for evaluation of left lateral hip pain. She reports that she has had pain that waxes and wanes over the past few years. She reports that the pain has improved since making the appointment. The pain still does persist just not as severe. The pain is located on the lateral aspect of the hip and is difficult when she is lying down on her left side. Additionally, the patient points to the area of the IT band from the hip distally to the knee that also has some soreness. Lastly, the patient also reports a history of left lower extremity burning on the anterior lateral aspect of the tibia and in the feet. The patient was offered a cortisone injection in the left greater trochanteric bursa with 80 mg of DepoMedrol. The patient was explained the risks, benefits, and alternatives to receiving this injection. After receiving consent for the injection, the patient had the procedure done while in the office today. The patient tolerated the procedure well with no complications. Follow-up will be p.r.n., or sooner if needed X-rays of the pelvis which were obtained while in the office today and were reviewed by me, Romana Casas PA-C, revealed no acute fracture or dislocation or degenerative changes. Orders: Orders XR pelvis 1-2V Today M25.559 - Pain in unspecified hip Coding Level of Care Code New Pt Level 3 (53753) Diagnoses Greater trochanteric bursitis of left hip M70.62 CPT Codes Coding - Joint 7: 26672 - Glenohumeral/Tronchanteric Bursa/Intraarticular ([id number])
[2024-07-12 09:20] VITALS: BMI 28.3
== END 2024-07-12 09:48 | disposition home or self-care (01) ==
LOC: HO.HOS 09:00
PROVIDERS: PCP Internal Medicine; Visit Provider Physician Assistant
DX: M70.62 Trochanteric bursitis, left hip (principal)
CPT/HCPCS: 20610; 99203

== ENCOUNTER → 2024-07-12 09:01 | Outpatient (BNV) | payer OTHER, SELFPAY | PROVIDERS: Visit Provider Radiology Diagnostic Radiology | DX: M25.559 Pain in unspecified hip (principal) | CPT/HCPCS: 72170 ==

== ENCOUNTER 2024-07-12 11:04 | Outpatient (REF) | payer OTHER, SELFPAY ==
--- NOTE | ~2024-07-12 | XR_ITS ---
EXAMINATION: XR PELVIS CLINICAL INFORMATION: M25.559 - Pain in unspecified hip COMPARISON: X-ray hips at September 22, 2017. TECHNIQUE: AP view of the pelvis. FINDINGS: Bony pelvis intact. Sclerosis and the articular surface of the sacroiliac joints. No lytic or blastic lesions. Spondylosis L4-5 and L5-S1. No subcutaneous emphysema. XR/XR pelvis 1-2V IMPRESSION: No acute fracture. Electronically signed by: Paul Rogers MD 07/12/2024 09:32 AM EDT
== END 2024-07-12 11:05 | disposition home or self-care (01) ==
LOC: HO.HOSX 11:04
PROVIDERS: Visit Provider Physician Assistant
DX: M70.62 Trochanteric bursitis, left hip (principal); M25.559 Pain in unspecified hip
CPT/HCPCS: 20610; 72170; J1010; J2003

== ENCOUNTER 2024-09-08 07:35 | Outpatient (REF) | payer OTHER, SELFPAY ==
[2024-09-08 10:20] LABS: Hematocrit 41.7 % (37.0-47.0); Hemoglobin 14.1 g/dl (12.0-16.0); Imm Gran Abs Auto 0.01 X10*3/uL (0.00-0.03); Imm Gran Pct Auto 0.2 % (0.0-0.4); Lymphocytes Absolute Auto 2.3 X10*3/uL (1.2-4.9); MANUAL DIFF FLAG SCAN; Mean Corpuscular HGB Conc 33.8 g/dl (31.0-35.0); Mean Corpuscular Hemoglobin 31.1 pg (27.0-33.0); Mean Corpuscular Volume 92.1 fL (80.0-98.0); NRBC Abs Auto 0.000 X10*3/uL (0.0-0.012); NRBC Pct Auto 0.0 /100WBC (0.0-0.2); Platelet Count 274 X10*3/uL (160-400); Red Blood Count 4.53 X10*6/uL (4.20-5.50); SCAN SMEAR FLAG 1; White Blood Count 5.1 X10*3/uL (4.8-10.8)
[2024-09-08 10:41] LABS: Alanine Aminotransferase 50 U/L (0-31); Anion Gap 11 (12-20); Aspartate Amino Transferase 40 U/L (5-31); Blood Urea Nitrogen 14 mg/dL (9-16); Calcium 8.7 mg/dL (8.4-10.2); Carbon Dioxide 27 mmol/L (22-29); Chloride 107 mmol/L (96-108); Cholesterol 149 mg/dL (<200); Estimated Glomerular Filt Rate > 60; HDL Cholesterol 48 mg/dL (>40); Potassium 3.6 mmol/L (3.3-5.1); Sodium 141 mmol/L (135-145); Triglycerides 114 mg/dL (<150)
== END 2024-09-08 07:36 | disposition home or self-care (01) ==
LOC: HO.HMGCLDS 07:35
PROVIDERS: PCP Internal Medicine; Visit Provider Internal Medicine
DX: K20.90 Esophagitis, unspecified without bleeding (principal); K29.70 Gastritis, unspecified, without bleeding; Z78.0 Asymptomatic menopausal state; Z13.1 Encounter for screening for diabetes mellitus; E78.5 Hyperlipidemia, unspecified; M25.552 Pain in left hip; J43.9 Emphysema, unspecified
CPT/HCPCS: 36415; 80048; 80061; 82306; 82550; 84450; 84460; 85025

== ENCOUNTER 2024-09-08 08:20 | Outpatient (AMB) | payer OTHER, SELFPAY ==
--- NOTE | 2024-09-08 08:25 | MHC.PC.OV ---
Vital Signs 09/08/24 08:26 Height 5 ft Weight 144 lb BMI 28.1 BP 130/80 Blood Pressure Location Lt brachial Position Sitting Respiration 16 Pulse 82 Pulse Source Pulse Oximeter Temp 98.1 F Temp Source Oral Pulse Oximetry (%) 96 Oxygen Delivery Method Room Air Intake Visit Reasons: Annual PE Intake Note: Pt is here today for her PE Allergies No Known Allergies (No Known Allergies*) Allergy (Verified 09/08/24 09:16) Medication List - Last Reconciled 09/08/24 by Catherine Anne MD albuterol sulfate 90 mcg/actuation 2 puffs PO Q6H PRN 3 months budesonide-formoterol 160-4.5 mcg/actuation (Symbicort) 2 puffs inhalation Q12H 3 months inhalational spacing device (BreatheRite MDI Spacer) As directed magnesium glycinate 100 mg PO DAILY omeprazole 20 mg PO DAILY PRN rosuvastatin 5 mg PO DAILY Tobacco use date assessed: 09/08/24 Dental Screening Dental Screen Date: 09/08/24 Did you have a dental visit in the last 12 months?: No Did you have a dental problem in the last 6 months where you did not have access to dental care?: No Was dental information given to patient?: Patient has dentist HPI Annual PE HPI Details [age] year old lady with history of emphysema, dyslipidemia, lymphangitis at gastritis, and has been having intermittent episodes of nocturnal leg cramps, here today for physical exam. She has been doing well with Symbicort, breathing better, rarely needing to use her albuterol inhaler. She is up-to-date with her cervical cancer screening, last Pap smear done in 2022 with negative findings, and is up-to-date with her screening colonoscopy done in 2017 with showed only presence of diverticulosis, repeat due again in 2027. She however is overdue to get her breast cancer screening. [facility] Medical History (Updated 09/08/24 @ 09:28 by Catherine Anne MD) Nocturnal leg cramps Emphysema of lung Left hip pain Lumbago syndrome Mid back pain Esophagitis with gastritis Exertional shortness of breath Surgical History No pertinent past surgical history Family History Father Mental health disorder Other No pertinent family history in first degree relatives Social History Housing: House Alcohol intake: current Alcohol intake frequency: holidays/special occasions only Patient Tobacco Use Status: Former Tobacco user Tobacco use type: Cigarette Cigarette Packs Per Day: 1 Years Smoked: 30 years e-Cigarette/Vaping Use: Currently Using service: No Current occupational status: employed 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 Depression Screening Interpretation: Negative Depression Screening Done: Yes Source: Developed by Drs. Micah Covington, Nilay Bautista and colleagues, with an educational miri from [employer]. Thrive Questionnaire Date Thrive assessed: 05/04/24 I am a: Patient What is your living situation today?: I have a steady place to live Within the past 12 months, did the food you bought not last and you didn't have the money to get more?: Never true Within the past 12 months, did you worry whether your food would run out before you got money to buy more?: Never true Do you have trouble paying for medicines?: No Do you have trouble getting transportation to medical appointments?: No Do you have trouble paying your heating and electricity bill?: No Do you have trouble taking care of your child, family member or friend?: No Do you have trouble with day-to-day activities such as bathing, preparing meals, shopping, managing finances, etc.?: No Are you currently unemployed and looking for a job?: No Are you interested in more education?: No Please select the resources that you would like help with: None Currently or been in a relationship where the following occur: No concerns reported THRIVE Score: 0 AUDIT C Alcohol Use Questionnaire (AUDIT-C) 1. How often do you have a drink containing alcohol?: Monthly or less Total Score: 1 YOGESH-7 AMB Questionnaire YOGESH-7 Date YOGESH - 7 assessed: 05/04/24 Source: Developed by Julia Bhakta Kurt Kroenke and colleagues, with an educational miri from [employer]. Review of Systems Const Denies headache(s) and Denies weakness Eyes Details: Sees Dr. Zambrano , has appointment already scheduled Reports requires corrective lenses ENT Denies dizziness, Denies headache(s) and Denies sore throat Card Denies lightheadedness Resp Reports as per HPI GI Denies abdominal pain and Denies change in bowel habits Denies hematuria, Denies difficulty voiding, Denies post void dribbling, Denies nocturia, Denies nipple discharge, Denies pelvic pain, Reports urinary incontinence (Occasional leakage with coughing), Denies vaginal discharge and Denies vaginal pruritus Musc Details: Gets recurrent nocturnal leg cramping Skin/Breast Denies breast pain, Denies breast mass, Denies dry skin, Denies lesions, Denies nipple discharge and Denies rash Neuro Denies dizziness, Denies headache(s), Denies Sensory deficit (Neuro) and Denies weakness Psych Reports no additional complaints Endo Reports no additional complaints Leroy/Lymph Reports no additional complaints Aller/Immun Reports no additional complaints Physical exam (Primary Care) Vital Signs: Last Vital Signs Temp 98.1 F 09/08/24 08:26 Pulse 82 09/08/24 08:26 Resp 16 09/08/24 08:26 BP 130/80 09/08/24 08:26 Pulse Ox 96 09/08/24 08:26 Oxygen Delivery Method Room Air 09/08/24 08:26 BMI result Body Mass Index 28.1 Tobacco/Smoking Status: Tobacco use Status Tobacco use date assessed 09/08/24 09/08/24 08:28 Patient Tobacco Use Status Former Tobacco user 09/08/24 08:28 Tobacco use type Cigarette 09/08/24 08:28 e-Cigarette/Vaping Use Currently Using 09/08/24 08:28 Depression Screening Interpretation: Negative Thrive Assessment: Date of Thrive Assessment Date Thrive assessed 05/04/24 09/08/24 08:28 Currently or been in a relationship where the following occur: No concerns reported Advance Care Planning discussion: Completed/Scanned Date of discussion: 09/08/24 Who was present: Patient Forms completed: Health Care Proxy Time spent: 16-45 minutes Actual minutes spent: 2 Const General: no acute distress and alert Orientation/consciousness: patient oriented x3 HENMT Ears: external ears normal General nose exam: Normal external nose present Mouth: Normal oral and palatal mucosa present and moist mucous membranes Eyes Other: sees Dr Zambrano General: appearance normal, both eyes and all related structures Neck Neck: Yes full ROM, Yes no lymphadenopathy and Yes supple Chest Breast/axilla inspection: normal inspection of the breasts Breast/axilla palpation: normal palpation of the breasts Resp Effort & Inspection: normal respiratory effort and able to speak in complete sentences Auscultation: clear to auscultation bilaterally Cardio Rate: regular rate Rhythm: regular rhythm Heart sounds: S1 normal heart sound present and S2 normal heart sound present GI Palpation (GI): Soft to palpation, nontender and no masses Auscultation: normal bowel sounds General: Yes no CVA tenderness and Yes deferred (Referred to [facility]) Back/Spine/Pelvis Back: no CVA tenderness and No back tenderness Skin General skin exam: no rashes or lesions noted Neuro General: patient oriented x3, gait normal, tone normal, moves all extremities, Normal light touch and pain sensation and no focal motor deficits Cognition (Neuro): normal cognition Sensory Exam: No Sensory deficit (Neuro) Extrem General: Yes normal to inspection, Yes full ROM, Yes no joint enlargement, Yes no clubbing, cyanosis or edema, Yes no calf tenderness and Yes normal gait Psych Appearance: grossly normal and well kempt Mental Status: mental status grossly normal Speech and movement: Normal speech and movement present Affect: normal affect Coding Level of Care Code Est Pt Prev Care 40-64y(81213) Diagnoses Annual visit for general adult medical examination with abnormal findings Z00. Emphysema of lung J43.9 Dyslipidemia E78.5 Esophagitis with gastritis K29.70; K20.90 Nocturnal leg cramps G47.62 Advanced directives, counseling/discussion Z71.89 Additional Codes Vital Signs *Quality* - Advance Care Planning discussion: Completed/Scanned ([id number]) Vital Signs *Quality* - Time spent: 16-45 minutes ([id number]) Assessment & Plan Assessment & Plan (1) Annual visit for general adult medical examination with abnormal findings: Code(s): Z00.01 - Encounter for general adult medical examination with abnormal findings Plan: Fasting labs are done, with results still pending . continue with regular dental visit every 6 months and regular eye exams, at least every 2 years, has an appointment already scheduled with Dr. Zambrano. Take adequate calcium in diet and vitamin-D 3 at 2000 IU per cap once a day, in addition to weight-bearing exercises to help maintain good muscle tone and weight control. Instructed to do self-breast exam, and recommended to get yearly mammogram, ordered. Up-to-date with all her vaccines and colonoscopy screening. (2) Emphysema of lung: Comment: PFT 05/24/24 Moderate obstructive ventilatory defect with positive bronchodilator response. Increased residual volume suggests air trapping. Decreased diffusion capacity suggests emphysema. Code(s): J43.9 - Emphysema, unspecified Category: Medical Plan: Refill sent for Symbicort and albuterol inhaler to her mail-order pharmacy. (3) Dyslipidemia: Code(s): E78.5 - Hyperlipidemia, unspecified Category: Medical Plan: Fasting lipid levels checked with results still pending. Currently on rosuvastatin 5 mg daily will continue (4) Esophagitis with gastritis: Code(s): K29.70 - Gastritis, unspecified, without bleeding; K20.90 - Esophagitis, unspecified without bleeding Category: Medical Plan: Takes omeprazole as needed (5) Nocturnal leg cramps: Code(s): G47.62 - Sleep related leg cramps Category: Medical Plan: Prescription sent for magnesium glycinate 100 mg taken once a day (6) Advanced directives, counseling/discussion: Code(s): Z71.89 - Other specified counseling Plan: Initiated the conversation about Advanced Directives. Advanced Directives help patients prepare for current and future decisions about their medical treatment and place of care. Discussed with patient that it is a process where a patients current condition and prognosis are reviewed, their wishes for information regarding their illness are elicited, and likely medical dilemmas are presented and options discussed. Healthcare proxy form completed. The form can be amended as needed, reviewed yearly and make changes as needed Orders: Orders MM tomosynthesis screening BI 09/08/24 Z12.31 - Encounter for screening mammogram for malignant neoplasm of breast Referrals [facility] Referral Z12.4 - Encounter for screening for malignant neoplasm of cervix Medications: New magnesium glycinate 100 mg PO DAILY 30 tabs 1RF G47.62 - Sleep related leg cramps Changed From albuterol sulfate 90 mcg/actuation 2 puffs PO Q6H PRN 8.5 grams 0RF shortness of breath on exertion J43.9 - Emphysema, unspecified To albuterol sulfate 90 mcg/actuation 2 puffs PO Q6H PRN 3 inhalers 4RF shortness of breath on exertion 3 months J43.9 - Emphysema, unspecified From budesonide-formoterol 160-4.5 mcg/actuation (Symbicort) 2 puffs inhalation Q12H 10.2 grams 5RF J43.9 - Emphysema, unspecified To budesonide-formoterol 160-4.5 mcg/actuation (Symbicort) 2 puffs inhalation Q12H 3 inhalers 4RF 3 months J43.9 - Emphysema, unspecified
[2024-09-08 08:26] VITALS: BP 130/80; PULSE 82; RESP 16; TEMP 36.7; O2SAT 96; BMI 28.1
== END 2024-09-08 09:41 | disposition home or self-care (01) ==
LOC: HO.HMCC 08:21
PROVIDERS: PCP Internal Medicine; Visit Provider Internal Medicine
DX: Z00.01 Encounter for general adult medical examination with abnormal findings (principal); J43.9 Emphysema, unspecified; E78.5 Hyperlipidemia, unspecified; K29.70 Gastritis, unspecified, without bleeding; K20.90 Esophagitis, unspecified without bleeding; G47.62 Sleep related leg cramps; Z71.89 Other specified counseling; Z00.00 Encounter for general adult medical examination without abnormal findings

== ENCOUNTER 2024-09-22 11:00 | Outpatient (AMB) | payer OTHER, SELFPAY ==
--- NOTE | 2024-09-22 11:28 | MHC.PC.OV ---
Vital Signs 09/22/24 11:32 Height 5 ft Weight 144 lb BMI 28.1 BP 120/82 Blood Pressure Location Lt brachial Position Sitting Respiration 15 Pulse 86 Pulse Source Pulse Oximeter Temp 98.2 F Temp Source Oral Pulse Oximetry (%) 96 Oxygen Delivery Method Room Air Intake Visit Reasons: f/u pneumonia/ urgent care Intake Note: Pt is here today to f/u pneumonia from urgent care Allergies No Known Allergies (No Known Allergies*) Allergy (Verified 09/22/24 11:59) Medication List - Last Reconciled 09/22/24 by Catherine Anne MD albuterol sulfate 90 mcg/actuation 2 puffs PO Q6H PRN 3 months budesonide-formoterol 160-4.5 mcg/actuation (Symbicort) 2 puffs inhalation Q12H 3 months inhalational spacing device (BreatheRite MDI Spacer) As directed magnesium glycinate 100 mg PO DAILY omeprazole 20 mg PO DAILY PRN rosuvastatin 5 mg PO DAILY Tobacco use date assessed: 09/22/24 Dental Screening Dental Screen Date: 09/22/24 Did you have a dental visit in the last 12 months?: Yes Did you have a dental problem in the last 6 months where you did not have access to dental care?: No Was dental information given to patient?: Patient has dentist HPI f/u pneumonia/ urgent care HPI Details Radha's here for follow-up after a recent visit at the urgent care clinic where she was diagnosed with acute sinusitis and pneumonia. Chest x-ray done at [facility] showed patchy density seen in left lower lobe and lingular segment with possible focal consolidation especially in the lingular segment with few air bronchograms and small left pleural effusion maybe seen otherwise lungs were normal heart size is normal, no hilar or mediastinal abnormality seen. She was prescribed Augmentin for 7 days and as Z-Anselmo, and prednisone 20 mg, 2 tablets daily for 5 days. She feels much better now but still has occasional episodes of shortness of breath on exertion especially when climbing stairs. She does not smoke but does vape regularly, to help deal with acute anxiety attacks. Has dyslipidemia, previously on rosuvastatin, but was complaining of muscle cramping and was found to have elevated muscle enzymes and liver enzymes on last labs done 09/08/2024. Patient has stopped rosuvastatin a week ago, started taking magnesium glycinate supplements 100 mg daily, but has not yet noticed any improvement, COUNT INCLUDES THE [facility] Medical History History of pneumonia Nocturnal leg cramps Emphysema of lung Left hip pain Lumbago syndrome Mid back pain Esophagitis with gastritis Exertional shortness of breath Surgical History No pertinent past surgical history Family History Father Mental health disorder Other No pertinent family history in first degree relatives Social History Housing: House Alcohol intake: current Alcohol intake frequency: holidays/special occasions only Patient Tobacco Use Status: Former Tobacco user Cigarette Packs Per Day: 1 Years Smoked: 30 years e-Cigarette/Vaping Use: Currently Using service: No Current occupational status: employed 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 Cognitive needs: No Hearing needs: No Vision needs: Yes Questionnaire Thrive Questionnaire Date Thrive assessed: 05/04/24 I am a: Patient What is your living situation today?: I have a steady place to live Within the past 12 months, did the food you bought not last and you didn't have the money to get more?: Never true Within the past 12 months, did you worry whether your food would run out before you got money to buy more?: Never true Do you have trouble paying for medicines?: No Do you have trouble getting transportation to medical appointments?: No Do you have trouble paying your heating and electricity bill?: No Do you have trouble taking care of your child, family member or friend?: No Do you have trouble with day-to-day activities such as bathing, preparing meals, shopping, managing finances, etc.?: No Are you currently unemployed and looking for a job?: No Are you interested in more education?: No Please select the resources that you would like help with: None Currently or been in a relationship where the following occur: No concerns reported THRIVE Score: 0 YOGESH-7 AMB Questionnaire YOGESH-7 Date YOGESH - 7 assessed: 05/04/24 Source: Developed by Drs. Micah L. NadyaJulia yoder, Nilay Kimbrough and colleagues, with an educational miri from [employer]. Review of Systems Const All systems reviewed & are unremarkable except as noted in HPI and below Neuro Denies Sensory deficit (Neuro) Physical exam (Primary Care) Vital Signs: Last Vital Signs Temp 98.2 F 09/22/24 11:32 Pulse 86 09/22/24 11:32 Resp 15 09/22/24 11:32 BP 120/82 09/22/24 11:32 Pulse Ox 96 09/22/24 11:32 Oxygen Delivery Method Room Air 09/22/24 11:32 BMI result Body Mass Index 28.1 Tobacco/Smoking Status: Tobacco use Status Tobacco use date assessed 09/22/24 09/22/24 11:31 Patient Tobacco Use Status Former Tobacco user 09/22/24 11:31 Tobacco use type 09/22/24 11:37 e-Cigarette/Vaping Use Currently Using 09/22/24 11:31 Thrive Assessment: Date of Thrive Assessment Date Thrive assessed 05/04/24 09/22/24 11:31 Currently or been in a relationship where the following occur: No concerns reported Const General: no acute distress and alert Orientation/consciousness: patient oriented x3 HENMT Ears: external ears normal General nose exam: Normal external nose present Mouth: Normal oral and palatal mucosa present and moist mucous membranes Neck Neck: Yes full ROM, Yes no lymphadenopathy and Yes supple Resp Effort & Inspection: normal respiratory effort and able to speak in complete sentences Auscultation: clear to auscultation bilaterally Cardio Rate: regular rate Rhythm: regular rhythm Heart sounds: S1 normal heart sound present and S2 normal heart sound present GI Palpation (GI): Soft to palpation, nontender and no masses Auscultation: normal bowel sounds Neuro General: patient oriented x3, gait normal, tone normal, moves all extremities, Normal light touch and pain sensation and no focal motor deficits Sensory Exam: No Sensory deficit (Neuro) Extrem General: Yes normal to inspection, Yes full ROM, Yes no joint enlargement, Yes no clubbing, cyanosis or edema, Yes no calf tenderness and Yes normal gait Coding Level of Care Code Est Pt Level 4 (23663) Diagnoses Dyslipidemia E78.5 Elevation of muscle enzyme R74.9 Elevated liver enzymes R74.8 History of pneumonia Z87.01 Emphysema of lung J43.9 Nocturnal leg cramps G47.62 Assessment & Plan Assessment & Plan (1) Dyslipidemia: Code(s): E78.5 - Hyperlipidemia, unspecified Category: Medical Plan: Currently off rosuvastatin for the last week. Continue holding rosuvastatin and can we recheck fasting lipids again in December 2024 . Reinforced importance of following low-cholesterol diet and getting regular exercise (2) Elevation of muscle enzyme: Code(s): R74.9 - Abnormal serum enzyme level, unspecified Plan: Rosuvastatin held, will recheck total CK in December 2024, stay well-hydrated (3) Elevated liver enzymes: Code(s): R74.8 - Abnormal levels of other serum enzymes Plan: Rosuvastatin held, will repeat liver enzymes again (4) History of pneumonia: Code(s): Z87.01 - Personal history of pneumonia (recurrent) Category: Medical Plan: Feeling much better, breathing easier, but still gets occasional shortness of breath on exertion already completed her antibiotic prescriptions and prednisone. Advised to stop vaping. Ordered a repeat chest x-ray to be done on October (5) Emphysema of lung: Comment: PFT 05/24/24 Moderate obstructive ventilatory defect with positive bronchodilator response. Increased residual volume suggests air trapping. Decreased diffusion capacity suggests emphysema. Code(s): J43.9 - Emphysema, unspecified Category: Medical Plan: Continue using Symbicort with spacer, advised to have at least a minute or 2 in between inhalations, and gargle mouth after use. Has albuterol inhaler to use as needed for episodes of bronchospasm, strongly advised to stop vaping (6) Nocturnal leg cramps: Code(s): G47.62 - Sleep related leg cramps Category: Medical Plan: Continue taking magnesium glycinate, may increase dose to 200 mg daily. Stay well-hydrated Orders: Orders XR chest 2V 10/17/24 Z87.01 - Personal history of pneumonia (recurrent) Creatine Kinase Total 12/07/24 E78.5 - Hyperlipidemia, unspecified, R74.8 - Abnormal levels of other serum enzymes, R74.9 - Abnormal serum enzyme level, unspecified Liver Panel 12/07/24 E78.5 - Hyperlipidemia, unspecified, R74.8 - Abnormal levels of other serum enzymes, R74.9 - Abnormal serum enzyme level, unspecified Lipid Panel 12/07/24 E78.5 - Hyperlipidemia, unspecified, R74.8 - Abnormal levels of other serum enzymes, R74.9 - Abnormal serum enzyme level, unspecified
[2024-09-22 11:32] VITALS: BP 120/82; PULSE 86; RESP 15; TEMP 36.8; O2SAT 96; BMI 28.1
== END 2024-09-22 12:00 | disposition home or self-care (01) ==
LOC: HO.HMCC 11:01
PROVIDERS: PCP Internal Medicine; Visit Provider Internal Medicine
DX: E78.5 Hyperlipidemia, unspecified (principal); R74.9 Abnormal serum enzyme level, unspecified; J43.9 Emphysema, unspecified; R74.8 Abnormal levels of other serum enzymes; Z87.01 Personal history of pneumonia (recurrent); G47.62 Sleep related leg cramps

== ENCOUNTER 2024-10-13 15:52 | Outpatient (REF) | payer OTHER, SELFPAY ==
--- NOTE | ~2024-10-13 | MM_ITS ---
EXAMINATION: MM SCREENING DIGITAL BREAST TOMOSYNTHESIS, BILATERAL CLINICAL INFORMATION: Screening. Asymptomatic. COMPARISON: Mammography: Comparison is made with available priors TECHNIQUE: Digital breast mammography with tomosynthesis is performed in both the craniocaudal and mediolateral oblique views along with computer-aided detection (CAD). FINDINGS: The breasts are heterogeneously dense, which may obscure small masses (ACR BI-RADS breast composition Category c). There are no significant masses, abnormal calcifications, or other abnormalities. MM/MM tomosynthesis screening BI IMPRESSION: No mammographic evidence of malignancy. ASSESSMENT: BI-RADS BI-RADS 1 - Negative RECOMMENDATION: Routine annual mammography screening. 1 year F/U This examination should not preclude the clinical evaluation of a suspicious palpable abnormality. This patient's information was entered into a reminder system with a target due date for their next mammogram. Electronically signed by: Chloe Woo DO 10/24/2024 09:00 AM JOANNE
== END 2024-10-13 15:53 | disposition home or self-care (01) ==
LOC: HO.MAMMO 15:52
PROVIDERS: PCP Internal Medicine; Visit Provider Internal Medicine
DX: Z12.31 Encounter for screening mammogram for malignant neoplasm of breast (principal)
CPT/HCPCS: 77063; 77067

== ENCOUNTER → 2024-10-13 15:55 | Outpatient (BNV) | payer OTHER, SELFPAY | PROVIDERS: PCP Internal Medicine; Visit Provider Internal Medicine | DX: Z12.31 Encounter for screening mammogram for malignant neoplasm of breast (principal) | CPT/HCPCS: 77063; 77067 ==

== ENCOUNTER 2024-10-28 13:00 | Outpatient (REF) | payer OTHER, SELFPAY ==
--- NOTE | ~2024-10-28 | XR_ITS ---
EXAMINATION: XR CHEST CLINICAL INFORMATION: Z87.01 - Personal history of pneumonia (recurrent) COMPARISON: 08/25/2019 TECHNIQUE: 2 views of the chest were obtained. FINDINGS: The cardiac, hilar, and mediastinal contours are normal. The lungs are clear bilaterally. There is no pneumothorax or pleural effusion. There is no focal osseous or soft tissue abnormality. XR/XR chest 2V IMPRESSION: Normal chest. Electronically signed by: Corey Alfredo MD 10/28/2024 01:44 PM EDT
== END 2024-10-28 13:01 | disposition home or self-care (01) ==
LOC: HO.HMGCX 13:00
PROVIDERS: PCP Internal Medicine; Visit Provider Internal Medicine
DX: Z87.01 Personal history of pneumonia (recurrent) (principal)
CPT/HCPCS: 71046

== ENCOUNTER → 2024-10-28 13:13 | Outpatient (BNV) | payer OTHER, SELFPAY | PROVIDERS: PCP Internal Medicine; Visit Provider Radiology Diagnostic Radiology | DX: Z87.01 Personal history of pneumonia (recurrent) (principal) | CPT/HCPCS: 71046 ==

== ENCOUNTER 2024-11-24 09:20 | Outpatient (AMB) | payer OTHER, SELFPAY ==
--- NOTE | 2024-11-24 09:43 | MHC.OFFVIS ---
Vital Signs 11/24/24 09:48 Height 5 ft Weight 144 lb BMI 28.1 Intake Visit Reasons: [employer]- LLE burning pain Intake Note: Radha is a 59 year old female who presents today as a new patient for lower left extremity pain. Patient was referred by 07/12/24, at their visit they discussed her that she has a history of left lower extremity burning on the anterior lateral aspect of the tibia and in the feet. Patient was given a cortisone injection in the left greater trochanteric bursa. Patient has had an x ray of the left hip and a MRI of the thoracic spine. At today's visit she states that for the past eight years she has had constant burning sensation in her left knee into the garcia. 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 Allergies Seasonal Allergies Allergy (Mild, Verified 11/24/24 09:48) Runny Nose Medication List - Last Reconciled 11/24/24 by Jeanette May MD albuterol sulfate 90 mcg/actuation 2 puffs PO Q6H PRN 3 months budesonide-formoterol 160-4.5 mcg/actuation (Symbicort) 2 puffs inhalation Q12H 3 months inhalational spacing device (BreatheRite MDI Spacer) As directed magnesium glycinate 100 mg PO DAILY omeprazole 20 mg PO DAILY PRN rosuvastatin 5 mg orally 3 times per week; HPI Comments Details: Patient seen by Ortho, received GT injection, referred to physiatry for further evaluation. Tells me that injection helped, feels much better on that area. Reviewed PCP notes - seen patient for nocturnal leg cramps, started magnesium glycinate, helps a little bit. For past 8 years, she gets burning on left lower leg, anterolateral calf/garcia area, down to ankle. Mostly at night when she's off her feet. More recently the arch on left foot cramps, especially when she stretches. It feels numb on plantar same area on lower leg and maybe on smallest toe. She points to fibular head area as painful area. Chronic back pain. Not sure if related to leg symptoms. More midline thoracic and lumbar. Imaging as below. [facility] Medical History History of pneumonia Nocturnal leg cramps Emphysema of lung Left hip pain Lumbago syndrome Mid back pain Esophagitis with gastritis Exertional shortness of breath Surgical History No pertinent past surgical history Family History Father Mental health disorder Other No pertinent family history in first degree relatives Social History Housing: House Alcohol intake: current Alcohol intake frequency: holidays/special occasions only Patient Tobacco Use Status: Former Tobacco user Cigarette Packs Per Day: 1 Years Smoked: 30 years e-Cigarette/Vaping Use: Currently Using service: No Current occupational status: employed 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 Patient was appropriately conversant and oriented. Good historian. MSK: Inspection reveals appropriate head and neck positioning. No specific abnormalities found on inspection of the spine and all extremities. No pain with palpation over the lumbar area. Lumbar ROM was full. Bilateral hip, knee and ankle ROM WNL. No ligamentous laxity or crepitance. No increased effusion. Straight-leg raising test negative. FABERE test negative. Strength is 5/5 in all muscle groups tested. No increased tone noted. Neurological: Mood appears normal, good affect, and appropriate for the circumstances. Neurologic examination of the upper and lower extremities was nonfocal with intact sensation, muscle stretch reflexes and without focal motor deficits. Arora?s negative bilaterally. Babinski was down going bilaterally. Clonus was negative. Gait is non-antalgic without loss of balance. Vital Signs: BMI result Body Mass Index 28.1 Results Reviewed Results Reviewed: Ordering Physician: Catherine Anne MD Date of Service: 12/17/22 Procedure(s): XR lumbar spine 4V min Accession Number(s): [id number] cc: Catherine Anne MD~ EXAMINATION: XR LUMBAR SPINE, 4 VIEWS MINIMUM XR THORACIC SPINE, 3 VIEWS CLINICAL INFORMATION: 57-year-old with dorsalgia. COMPARISON: None available. LUMBAR TECHNIQUE: AP, lateral, bilateral oblique, coned-down lateral views. FINDINGS: Alignment: 3.5 mm of 5 grade 1 degenerative spondylolisthesis at L4-L5 noted, with no evidence for spondylolysis. 2 mm of retrolisthesis also noted at L3-L4. Trace mid lumbar levocurvature noted at L3-L4. Vertebral Heights: Normal. No compression fractures. Disc Space Heights: Hccbwxjl-ev-jkfpgg intervertebral disc space height loss at L5-S1, mild disc height loss at L4-L5 and ubdh-bl-qopfiboh disc space height loss at L3-L4 and L2-L3. Vertebral Endplates: Minor degrees of multilevel endplate spurring. Otherwise, endplates appear grossly intact without destructive changes. Pedicles/Spinous Processes: Grossly intact. Facet Joints: Bilateral facet arthropathy at the levels between L3-L4 and L5-S1 inclusive. Soft Tissues: Probable phleboliths in the pelvis bilaterally. Visualized SI Joints: Normal. Limited assessment. XR/XR lumbar spine 4V min IMPRESSION: 1. Grade 1 degenerative spondylolisthesis at L4-L5 and 2 mm of retrolisthesis at L3-L4. 2. Bupzdrie-zv-cironi intervertebral disc space height loss at L5-S1 and iknv-zo-bjtsnfiu disc space height loss at L2-L3 and L3-L4. Minor degrees of multilevel endplate spurring. 3. No compression fractures. 4. Multilevel bilateral facet arthrosis. THORACIC TECHNIQUE: AP, lateral and swimmer's lateral views were obtained. FINDINGS: The thoracic spine appears in anatomic alignment. At T3, there is mild concavity along the superior endplate on the swimmer's lateral view. Uncertain whether this is artifactual or related to a mild superior endplate compression deformity. Otherwise, vertebral body heights are well maintained. The intervertebral disc space heights appear whyeau-pf-irkgnxrfty narrowed in the mid to upper thoracic spine with minor anterior marginal endplate spurring in the midthoracic spine. Pedicles and spinous processes appear grossly intact within the limitations of the study. Visualized extraspinal soft tissue structures are grossly unremarkable with a normal appearance to the paraspinal lines. IMPRESSION: 1. Possible mild superior endplate compression deformity of T3 versus artifact which can be further assessed with either MRI or CT if clinically warranted. 2. Minor multilevel degenerative changes, as discussed above. Ordering Physician: Romana Casas PA-C Date of Service: 07/12/24 Procedure(s): XR pelvis 1-2V Accession Number(s): [id number] cc: Romana Casas PA-C~ EXAMINATION: XR PELVIS CLINICAL INFORMATION: M25.559 - Pain in unspecified hip COMPARISON: X-ray hips at September 22, 2017. TECHNIQUE: AP view of the pelvis. FINDINGS: Bony pelvis intact. Sclerosis and the articular surface of the sacroiliac joints. No lytic or blastic lesions. Spondylosis L4-5 and L5-S1. No subcutaneous emphysema. XR/XR pelvis 1-2V IMPRESSION: No acute fracture. Ordering Physician: Catherine Anne MD Date of Service: 02/23/23 Procedure(s): MR thoracic spine wo con Accession Number(s): [id number] cc: Catherine Anne MD~ EXAMINATION: MR THORACIC SPINE WITHOUT CONTRAST CLINICAL INFORMATION: Major back pain. Bending left lower leg. COMPARISON: Plain films of the thoracic and lumbar spine 12/17/2022. MRI scan of the lumbar spine 06/30/2019. TECHNIQUE: MRI of the thoracic spine was obtained using routine sequences without contrast. FINDINGS: VERTEBRAL BODIES AND PARASPINAL STRUCTURES: There is anatomic alignment of the vertebral bodies. There is mild loss of intervertebral disc height at multiple levels. The study redemonstrates a cavity along the superior endplate of T3; this is likely chronic as this vertebra has isointense signal to adjacent osseous structures. Vertebral body heights are maintained at other levels. Overall, marrow signal is homogenous. The paravertebral and visualized posterior thoracic and superior retroperitoneal structures are unremarkable. The conus is at the level of L1-L2. The lower thoracic spinal cord appears normal. The cauda equina nerve roots and filum terminale appear normal. SPINAL LEVELS: C7-T1 and T1-T2: The facet joints appear normal bilaterally. Disc contours are normal. There is no central stenosis or foraminal narrowing. T2-T3: The facet joints appear normal. There is a shallow posterior disc protrusion with mild effacement of CSF ventral to the spinal cord but there is no cord compression or central stenosis. The neural foramina are patent bilaterally. T3-T4 through T7-T8: The facet joints appear normal bilaterally. Disc contours are normal. There is no central stenosis or foraminal narrowing. T8-T9: There is mild bilateral facet arthropathy. There is a small right-sided posterior disc protrusion with minimal distortion of the ventral thecal sac and there is no central stenosis. The neural foramina are patent bilaterally. T9-T10 through T12-L1: There is mild bilateral facet arthropathy at these levels. Posterior disc contours are normal. There is no central stenosis or foraminal narrowing. MR/MR thoracic spine wo con IMPRESSION: 1. There are no acute fractures or subluxations. The study redemonstrates a cavity along the superior endplate of T3 which is likely chronic. 2. There are mild spondylitic and facet arthropathic changes at multiple levels as described above. There is no central stenosis or foraminal narrowing. I reviewed records from the following: PCP Orthopedics Assessment & Plan Assessment & Plan (1) Neuropathy of left peroneal nerve: Code(s): G57.32 - Lesion of lateral popliteal nerve, left lower limb Category: Medical (2) Left lumbar radiculitis: Code(s): M54.16 - Radiculopathy, lumbar region Category: Medical Plan Chronic burning on left anterolateral lower leg. Chronic lower back pain. No footdrop. Differential include peroneal neuropathy versus lumbar radiculopathy. We will schedule her for EMG to further investigate. Assessment and plan discussed with patient, and patient was agreeable. All questions were answered thoroughly. Jeanette May MD, KAM Board Certified, [place] Board [employer] and Rehabilitation (ABPMR) Board Certified, [place] Board [employer] Electrodiagnostic Medicine (ABEM) Orders: Orders NE nerve conduction velocity Today G57.32 - Lesion of lateral popliteal nerve, left lower limb, M54.16 - Radiculopathy, lumbar region NE electromyogram (EMG) Today G57.32 - Lesion of lateral popliteal nerve, left lower limb, M54.16 - Radiculopathy, lumbar region Coding Level of Care Code New Pt Level 4 (61809) Diagnoses Neuropathy of left peroneal nerve G57.32 Left lumbar radiculitis M54.16
[2024-11-24 09:48] VITALS: BMI 28.1
== END 2024-11-24 10:06 | disposition home or self-care (01) ==
LOC: HO.HOS 09:21
PROVIDERS: PCP Internal Medicine; Visit Provider Physical Medicine & Rehabilitation
DX: G57.32 Lesion of lateral popliteal nerve, left lower limb (principal); M54.16 Radiculopathy, lumbar region
CPT/HCPCS: 99204

== ENCOUNTER 2024-12-15 10:32 | Outpatient (AMB) | payer OTHER, SELFPAY ==
--- NOTE | 2024-12-15 11:10 | MHC.OFFWIV ---
Intake Vital Signs 12/15/24 11:11 Height 5 ft Weight 143 lb BMI 27.9 BP 122/86 Blood Pressure Location Lt brachial Position Sitting Respiration 16 Pulse 78 Pulse Source Pulse Oximeter Temp 98.0 F Temp Source Oral Pulse Oximetry (%) 97 Oxygen Delivery Method Room Air Intake Visit Reasons: EP Fever for 8 days/ SOB Patient Tobacco Use Status: Former Tobacco user Accompanied by: Self / Same As Patient Allergies Seasonal Allergies Allergy (Mild, Verified 12/15/24 11:11) Runny Nose HPI HPI Comments History of Present Illness Details 59 y/o Female patient who presents to the walk in clinic with c/o URI symptoms. Pt reports high fevers at home around 99 -100 degrees F. Reports Feeling Fatigue, generalized body aches and Dry cough. Reports SOB with mild wheezing. She does have h/o COPD and she has been using her inhalers with good relief. She has been taking Ibuprofen with good relief. [facility] Medical History (Updated 12/15/24 @ 11:35 by Tiffanie Gaxiola NP) Acute respiratory disease History of pneumonia Nocturnal leg cramps Emphysema of lung Left hip pain Lumbago syndrome Mid back pain Esophagitis with gastritis Exertional shortness of breath Surgical History No pertinent past surgical history Family History Father Mental health disorder Other No pertinent family history in first degree relatives Social History Housing: House Alcohol intake: current Alcohol intake frequency: holidays/special occasions only Patient Tobacco Use Status: Former Tobacco user Cigarette Packs Per Day: 1 Years Smoked: 30 years e-Cigarette/Vaping Use: Currently Using service: No Current occupational status: employed 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 Cognitive needs: No Hearing needs: No Vision needs: Yes Review of Systems Const All systems reviewed & are unremarkable except as noted in HPI and below Physical Exam Vital Signs: Last Vital Signs Temp 98.0 F 12/15/24 11:11 Pulse 78 12/15/24 11:11 Resp 16 12/15/24 11:11 BP 122/86 12/15/24 11:11 Pulse Ox 97 12/15/24 11:11 Oxygen Delivery Method Room Air 12/15/24 11:11 BMI result Body Mass Index 27.9 Const General: no acute distress Nutritional Appearance: well nourished Orientation/consciousness: patient oriented x3 HEENT Head: Yes normocephalic Ears: external ears normal and TM abnormal with fluid behind the TM bilateral General nose exam: Nasal discharge present Face and sinus: Yes sinuses nontender Mouth: moist mucous membranes Throat: Yes uvula midline Resp Effort & Inspection: normal respiratory effort, able to speak in complete sentences, no audible wheezes and no cough Auscultation: clear to auscultation bilaterally, no crackles, no rales, no rhonchi and no wheezes Cardio Heart sounds: S1 normal heart sound present and S2 normal heart sound present Neuro General: patient oriented x3, gait normal and moves all extremities Psych Speech and movement: Normal speech and movement present Assessment & Plan Assessment & Plan (1) Acute respiratory disease: Code(s): J06.9 - Acute upper respiratory infection, unspecified Plan: Poss Viral vs Bacterial PE and Vitals WNL Ordered Resp Panel Continue taking OTC pain relief medications. Rest and hydrate well with warm fluids. Orders: Orders Resp Pathogen Panel - [facility] Today J06.9 - Acute upper respiratory infection, unspecified Coding Level of Care Code Est Pt Level 4 (02791) Diagnoses Acute respiratory disease J06.9 Time Spent (min) 20
[2024-12-15 11:11] VITALS: BP 122/86; PULSE 78; RESP 16; TEMP 36.7; O2SAT 97; BMI 27.9
== END 2024-12-15 11:38 | disposition home or self-care (01) ==
PROVIDERS: PCP Internal Medicine; Visit Provider Nurse Practitioner Family
DX: J06.9 Acute upper respiratory infection, unspecified (principal)

== ENCOUNTER 2024-12-15 10:32 | Outpatient (REF) | payer OTHER, SELFPAY ==
[2024-12-15 15:48] LABS: Chlamydia pneumoniae PCR Not Detected (Not Detect.); Coronavirus 229E PCR Not Detected (Not Detect.); Coronavirus HKU1 PCR Not Detected (Not Detect.); Coronavirus NL63 PCR Not Detected (Not Detect.); Coronavirus OC43 PCR Not Detected (Not Detect.); RSV PCR Not Detected (Not Detect.); Rhino/Enterovirus PCR Not Detected (Not Detect.); SARS-CoV-2 PCR Not Detected (Not Detect.)
[2024-12-15 16:01] LABS: Influenza A H1 PCR Not Detected (Not Detect.); Influenza A H1-2009 PCR Not Detected (Not Detect.); Influenza A H3 PCR Not Detected (Not Detect.)
== END 2024-12-15 10:33 | disposition home or self-care (01) ==
LOC: HO.LAB 10:32
PROVIDERS: PCP Internal Medicine; Visit Provider Nurse Practitioner Family
DX: J06.9 Acute upper respiratory infection, unspecified (principal); R06.02 Shortness of breath; R06.2 Wheezing; R50.9 Fever, unspecified; R53.83 Other fatigue; Z87.891 Personal history of nicotine dependence
CPT/HCPCS: 87633

== ENCOUNTER 2024-12-22 09:11 | Outpatient (REF) | payer OTHER, SELFPAY ==
[2024-12-22 14:04] LABS: Alanine Aminotransferase 25 U/L (0-31); Albumin Level 4.2 g/dL (3.5-5.0); Alkaline Phosphatase 108 U/L (39-117); Aspartate Amino Transferase 29 U/L (5-31); Cholesterol 244 mg/dL (<200); HDL Cholesterol 49 mg/dL (>40); Total Protein 7.1 g/dL (6.5-8.0); Triglycerides 131 mg/dL (<150)
== END 2024-12-22 09:12 | disposition home or self-care (01) ==
LOC: HO.HMGCLDS 09:11
PROVIDERS: PCP Internal Medicine; Visit Provider Internal Medicine
DX: R74.8 Abnormal levels of other serum enzymes (principal); E78.5 Hyperlipidemia, unspecified; R74.9 Abnormal serum enzyme level, unspecified
CPT/HCPCS: 36415; 80061; 80076; 82550

== ENCOUNTER 2024-12-26 11:45 | Outpatient (AMB) | payer OTHER, SELFPAY ==
[2024-12-26 11:48] VITALS: BP 138/76; PULSE 85; RESP 15; TEMP 36.6; O2SAT 98; BMI 27.7
--- NOTE | 2024-12-26 11:48 | MHC.PC.OV ---
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 Allergies Seasonal Allergies Allergy (Mild, Verified 12/26/24 14:29) Runny Nose Medication List - Last Reconciled 12/26/24 by Catherine Anne MD albuterol sulfate 90 mcg/actuation 2 puffs PO Q6H PRN 3 months budesonide-formoterol 160-4.5 mcg/actuation (Symbicort) 2 puffs inhalation Q12H 3 months ezetimibe 10 mg PO DAILY inhalational spacing device (BreatheRite MDI Spacer) As directed magnesium glycinate 100 mg PO DAILY omeprazole 20 mg PO DAILY PRN Tobacco use date assessed: 12/26/24 Dental Screening Dental Screen Date: 12/26/24 Did you have a dental visit in the last 12 months?: Yes Did you have a dental problem in the last 6 months where you did not have access to dental care?: No Was dental information given to patient?: Patient has dentist HPI 3 months f/up HPI Details 59 year old lady with past medical history of dyslipidemia, presents today for follow-up . She was previously on rosuvastatin, but developed muscle pain/cramps, and was found to have elevated muscle enzymes and liver enzymes on last labs done 09/08/2024. Rosuvastatin discontinued. She has been off it now for at least 2 and half months, with improvement in her myalgia but still gets occasional numbness and tingling going down left leg. She does have an appointment for an EMG/nerve conduction study scheduled for her left leg on 01/19/2025. Please persistent, which has been present the last week or so. Denies any accompanying fever but has not occasional body aches denies any shortness of breath. [facility] Medical History History of pneumonia Nocturnal leg cramps Emphysema of lung Lumbago syndrome Esophagitis with gastritis Surgical History No pertinent past surgical history Family History Father Mental health disorder Other No pertinent family history in first degree relatives Social History Housing: House Alcohol intake: current Alcohol intake frequency: holidays/special occasions only Patient Tobacco Use Status: Former Tobacco user Cigarette Packs Per Day: 1 Years Smoked: 30 years e-Cigarette/Vaping Use: Currently Using service: No Current occupational status: employed 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 1. Little interest or pleasure in doing things: not at all 2. Feeling down, depressed, or hopeless: not at all 3. Trouble falling or staying asleep, or sleeping too much: not at all 4. Feeling tired or having little energy: not at all 5. Poor appetite or overeating: not at all 6. Feeling bad about yourself - or that you are a failure or have let yourself or your family down: not at all 7. Trouble concentrating on things, such as reading the newspaper or watching television: not at all 8. Moving or speaking so slowly that other people could have noticed. Or the opposite - being so fidgety or restless that you have been moving around a lot more than usual: not at all 9. Thoughts that you would be better off or of hurting yourself in some way: not at all Total score: 0 Depression Screening Interpretation: Negative Depression Screening Done: Yes Source: Developed by Drs. Micah Covington, Julia Pastrana, Nilay Kimbrough and colleagues, with an educational miri from [employer]. Thrive Questionnaire Date Thrive assessed: 05/04/24 I am a: Patient What is your living situation today?: I have a steady place to live Within the past 12 months, did the food you bought not last and you didn't have the money to get more?: Never true Within the past 12 months, did you worry whether your food would run out before you got money to buy more?: Never true Do you have trouble paying for medicines?: No Do you have trouble getting transportation to medical appointments?: No Do you have trouble paying your heating and electricity bill?: No Do you have trouble taking care of your child, family member or friend?: No Do you have trouble with day-to-day activities such as bathing, preparing meals, shopping, managing finances, etc.?: No Are you currently unemployed and looking for a job?: No Are you interested in more education?: No Please select the resources that you would like help with: None Currently or been in a relationship where the following occur: No concerns reported THRIVE Score: 0 AUDIT C Alcohol Use Questionnaire (AUDIT-C) 1. How often do you have a drink containing alcohol?: Monthly or less Total Score: 1 YOGESH-7 AMB Questionnaire YOGESH-7 Date YOGESH - 7 assessed: 05/04/24 Feeling nervous, anxious, or on edge: 0 = Not at all Not being able to stop or control worryin = Not at all Worrying too much about different things: 0 = Not at all Trouble relaxin = Not at all Being so restless that it is hard to sit still: 0 = Not at all Becoming easily annoyed or irritable: 0 = Not at all Feeling afraid as if something awful might happen: 0 = Not at all Total YOGESH-7 score (0-4 normal; 5-9 mild; 10-14 moderate; 15-21 severe): 0 Source: Developed by Drs. Micah Covington, Julia Pastrana, Nilay Kimbrough and colleagues, with an educational miri from [employer]. Review of Systems Const All systems reviewed & are unremarkable except as noted in HPI and below Physical exam (Primary Care) Vital Signs: Last Vital Signs Temp 97.9 F 12/26/24 11:48 Pulse 85 12/26/24 11:48 Resp 15 12/26/24 11:48 BP 138/76 12/26/24 11:48 Pulse Ox 98 12/26/24 11:48 Oxygen Delivery Method Room Air 12/26/24 11:48 BMI result Body Mass Index 27.7 Tobacco/Smoking Status: Tobacco use Status Tobacco use date assessed 12/26/24 12/26/24 11:51 Patient Tobacco Use Status Former Tobacco user 12/26/24 11:48 Tobacco use type 09/22/24 11:58 e-Cigarette/Vaping Use Currently Using 12/26/24 11:48 PHQ-9: PHQ-9 Score PHQ-9: Total score 0 01/01/25 00:49 Depression Screening Interpretation: Negative Thrive Assessment: Date of Thrive Assessment Date Thrive assessed 05/04/24 12/26/24 11:48 Currently or been in a relationship where the following occur: No concerns reported Const General: no acute distress and alert Orientation/consciousness: patient oriented x3 HENMT Ears: external ears normal General nose exam: Normal external nose present Mouth: Normal oral and palatal mucosa present and moist mucous membranes Neck Neck: Yes full ROM, Yes no lymphadenopathy and Yes supple Resp Effort & Inspection: normal respiratory effort and able to speak in complete sentences Auscultation: clear to auscultation bilaterally Cardio Rate: regular rate Rhythm: regular rhythm Heart sounds: S1 normal heart sound present and S2 normal heart sound present GI Palpation (GI): Soft to palpation and nontender Auscultation: normal bowel sounds Neuro General: patient oriented x3, gait normal, tone normal, moves all extremities, Normal light touch and pain sensation and no focal motor deficits Extrem General: Yes normal to inspection, Yes full ROM, Yes no joint enlargement, Yes no clubbing, cyanosis or edema, Yes no calf tenderness and Yes normal gait Results Reviewed Results Reviewed: Name: Radha Talbert Age/Sex: 59/F : 1965 Unit#: [id number] Attend Dr: Catherine nAne MD Re12/22/24 Status: DEP REF Location: [facility] Disch: SPEC : [id number] BRI: 12/22/24 STATUS: COMP REQ : [id number] RECD: 12/22/[address]: Catherine Anne MD COMP: 12/22/244 ENTERED: 12/22/[address] [facility] [address]: ORDERED: Liver Panel, CK Total, Lipid Panel Test Result Flag Reference Total Bili 0.3 0.0-1.0 mg/dL Direct Bili 0.1 0.0-0.5 mg/dL AST (GOT) 29 5-31 U/L ALT (GPT) 25 0-31 U/L CK Total 165 H 26-140 U/L Protein, Total 7.1 6.5-8.0 g/dL Alb 4.2 3.5-5.0 g/dL Triglyceride 131 <150 mg/dL Desirable Triglyceride: less than 150 mg/dL Borderline High Triglyceride 150-199 mg/dL High Triglyceride: 200-499 mg/dL Very High Triglyceride: greater than or equal to 5OO mg/dL Cholesterol 244 H <200 mg/dL Desirable Cholesterol: less than 200 mg/dL Borderline High Cholesterol: 200-239 mg/dL High Cholesterol: greater than 239 mg/dL LDL Calculated 169 H <100 mg/dL Desirable LDL: less than 100 mg/dL Near Optimal/Above Optimal LDL: 110-129 mg/dL Borderline High LDL: 130-159 mg/dL High LDL: 160-189 mg/dL Very High LDL: greater than or equal to 190 mg/dL HDL 49 >40 mg/dL Desirable HDL: greater than 40 mg/dL Note: This HDL assay may give artificially low results in patients with liver disease. Alk Phos 108 39-117 U/L Coding Level of Care Code Est Pt Level 4 (51983) Diagnoses Former heavy cigarette smoker (20-39 per day) Z87.891 Dyslipidemia E78.5 Acute cough R05.1 Cough type: acute Assessment & Plan Assessment & Plan (1) Former heavy cigarette smoker (20-39 per day): Code(s): Z87.891 - Personal history of nicotine dependence Plan: Referred for lung screening (2) Dyslipidemia: Code(s): E78.5 - Hyperlipidemia, unspecified Category: Medical Plan: LDL cholesterol still remains to tolerate statin, will try on ezetimibe 10 mg per tablet taken once a day. Reinforced importance of adhering to LD habit and getting regular exercise will repeat another fasting lipid panel in April 2025 on her next visit (3) Cough: Code(s): R05.9 - Cough, unspecified Qualifiers: Cough type: acute Qualified Code(s): R05.1 - Acute cough Plan Screening for COVID, flu and RSV ordered Orders: Orders SARS-CoV2/FLU/RSV 12/26/24 R09.89 - Other specified symptoms and signs involving the circulatory and respiratory systems Referrals Lung Cancer Screening Referral Z87.891 - Personal history of nicotine dependence Medications: New ezetimibe 10 mg PO DAILY 30 tabs 4RF
== END 2024-12-26 12:38 | disposition home or self-care (01) ==
LOC: HO.HMCC 11:46
PROVIDERS: PCP Internal Medicine; Visit Provider Internal Medicine
DX: Z87.891 Personal history of nicotine dependence (principal); E78.5 Hyperlipidemia, unspecified; R05.1 Acute cough

== ENCOUNTER 2025-01-19 13:00 | Outpatient (REF) | payer OTHER, SELFPAY ==
--- NOTE | 2025-01-19 13:04 | EMG_ITS ---
Chief complaint: Chronic left-sided leg paresthesias, please see my office notes Reason for referral: Evaluate for peroneal neuropathy Procedure done: Left lower extremity NCS/EMG Precautions and/or limitations: None The limb temperature was monitored continuously and remained between 32-36 degrees C during the performance of the NCS. Nerve Conduction Studies Anti Sensory Summary Table ?Stim Site NR Onset (ms) Norm Onset (ms) Peak (ms) Norm Peak (ms) O-P Amp (?V) Norm O-P Amp Site1 Site2 Delta-0 (ms) Dist (cm) Josh (m/s) Norm Josh (m/s) Left Sup Peron Anti Sensory (Ankle) Lateral Leg ? 2.4 3.1 <4.4 6.3 >5.0 Lateral Leg Ankle 2.4 14.0 58 Left Sural Anti Sensory (Lat Mall) Calf ? 3.4 4.0 <4.0 9.0 >5.0 Calf Lat Mall 3.4 14.0 41 Motor Summary Table ?Stim Site NR Onset (ms) Norm Onset (ms) O-P Amp (mV) Norm O-P Amp iAmp (mV) Amp (1st) (%) Site1 Site2 Delta-0 (ms) Dist (cm) Josh (m/s) Norm Josh (m/s) Left Peroneal Motor (Ext Dig Brev) Ankle ? 7.1 <4.0 3.4 >2.5 4.2 100.0 Ankle Ext Dig Brev 7.1 0.0 B Fib ? 12.7 2.6 3.1 76.5 B Fib Ankle 5.6 25.0 45 >40 Poplt ? 13.8 2.6 3.1 76.5 Poplt B Fib 1.1 5.0 45 >40 Left Tibial Motor (Abd Thakur Brev) Ankle ? 4.3 <5 17.6 >2.5 25.1 100.0 Ankle Abd Thakur Brev 4.3 0.0 Knee ? 10.9 16.5 23.1 93.7 Knee Ankle 6.6 32.0 48 >40 EMG ?Side Muscle Nerve Root Ins Act Fibs Psw Amp Dur Poly Recrt Int Pat Comment Left AbdHallucis MedPlantar S1-2 Nml Nml Nml Nml Nml 0 Nml Complete Left AntTibialis Dp Br Peron L4-5 Nml Nml Nml Nml Nml 0 Nml Complete Left MedGastroc Tibial S1-2 Nml Nml Nml Nml Nml 0 Nml Complete Left VastusMed Femoral L2-4 Nml Nml Nml Nml Nml 0 Nml Complete Left Peroneus Long Sup Br Peron L5-S1 Nml Nml Nml Nml Nml 0 Nml Complete Paraspinal EMG ?Side Muscle Nerve Root Ins Act Fibs Psw Comment Left Lumbar Upper Rami Nml Nml Nml Left Lumbar Mid Rami Nml Nml Nml Left Lumbar Lower Rami Nml Nml Nml FINDINGS: Left peroneal nerve showed prolonged distal latency, normal amplitude and normal conduction velocity. No conduction block across fibular neck. All other nerves tested were within normal. Concentric needle EMG was performed in selected muscles of the left lower extremity and lumbar paraspinals. Study did not reveal signs of electric abnormalities as shown in the table above. IMPRESSION: 1. This is minimally abnormal study. 2. 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 3. There is no electrodiagnostic evidence for tibial neuropathy, lumbosacral plexopathy, or lumbar radiculopathy. CLINICAL COMMENT: Patient can try physical therapy again especially to help with the spasms on her calf. Referral placed. Further clinical correlation recommended. Thank you for your kind referral. Jeanette May MD, KAM Board Certified, [place] [employer] and Rehabilitation (ABPMR) Board Certified, [place] [employer] Electrodiagnostic Medicine (ABEM) CODIN 12625 x1 extremity MTDD
== END 2025-01-19 13:01 | disposition home or self-care (01) ==
LOC: HO.NEURO 13:00
PROVIDERS: PCP Internal Medicine; Visit Provider Physical Medicine & Rehabilitation
DX: G57.32 Lesion of lateral popliteal nerve, left lower limb (principal); R20.0 Anesthesia of skin
CPT/HCPCS: 95886; 95908

== ENCOUNTER → 2025-01-19 13:04 | Outpatient (BNV) | payer OTHER, SELFPAY | PROVIDERS: PCP Internal Medicine; Visit Provider Physical Medicine & Rehabilitation | DX: G57.32 Lesion of lateral popliteal nerve, left lower limb (principal) | CPT/HCPCS: 95886; 95908 ==